=== PATIENT | male | born 1965 | race Caucasian/White ===

== ENCOUNTER → 2016-11-03 | Outpatient (CLI) | payer BC, OTHER ==
[~2016-11-03] VITALS: Ht 177.8 cm; Wt 89.8 kg
[~2016-11-03] MED LIST: BENICAR40 MG PO; CYCLOBENZAPRINE10 MG PO; CYMBALTA30 MG PO; CYMBALTA60 MG PO; ENDOCET 7.5-321 EACH PO; FLEXERIL PO; GABAPENTIN PO; GRALISE600 MG PO; LIPITOR10 MG PO; LYRICA 75 MG CA75 MG PO; MOBIC7.5 MG PO; NABUMETONE 500500 M1 PO; NEURONTIN600 MG PO; OXYCODONE-APAP1 EAC6 PO; PERCOCET 5-3251 EACH PO; PERCOCET 7.5-31 EACH PO; TRAMADOL 50 MG50 MG PO; TRAMADOL HCL E200 MG PO; ULTRAM ER200 MG PO; ULTRAM ER300 MG PO; VIAGRA50 MG PO; VOLTAREN GEL 1100 G1 TOP
--- NOTE | ~2016-11-03 | HPC ---
[facility] [address] [place] [address] PAIN MANAGEMENT CONSULTATION Name: DARIUS JAIME Damien Room #: REG [facility].#: [id number] Admission: 11/03/16 Attend Phys: Stephane Orona DO Discharge: Date of : 69 Report #: [id number] THIS REPORT FOR: //name// CC: Joe Gould MD FAM physician/PCP Stephane Orona DATE OF SERVICE: 11/03/2016 REFERRING PHYSICIAN: Joe Gould MD CHIEF COMPLAINT: Neck pain, right upper extremity pain and paresthesias. HISTORY OF PRESENT ILLNESS: As you know, the patient is a very pleasant 51-year-old male who returns today in followup visit for continuation of medication therapy. The patient indicates pain at a level of around 5/10, states his pain is aching, cramping, and stabbing in sensation, exacerbated with activities, improves with rest, relaxation and medications. He states pain begins in the neck, radiates to the right arm. He has returned today in followup visit requesting refill on medication. He denies any side effects to medication and feels they are working beneficially. ALLERGIES: No known drug allergies. CURRENT MEDICATIONS: Tramadol ER 200 mg once a day, tramadol IR 50 mg every 6 hours, Gralise 1800 mg p.o. at bedtime, Cymbalta 60 mg per day, cyclobenzaprine 10 mg 3 times a day, Viagra 50 mg p.r.n., atorvastatin 10 mg per day, and Benicar 40 mg per day. SOCIAL HISTORY: The patient continues to smoke. Denies IV or illicit drug use. Denies any chronic alcohol use. He is working, not receiving workmen's compensation, unaccompanied today. PHYSICAL EXAMINATION: VITAL SIGNS: Blood pressure 148/104, pulse is 78, respiratory rate 14 and unlabored, the patient is 98% on room air, height 5 feet 10 inches tall, weight 198 pounds, and BMI calculated 28.4. GENERAL: Well-developed, well-nourished, well-hydrated 51-year-old male, appearing stated age, placing current pain score at around 5/10. HEENT: Normocephalic, atraumatic. Pupils are equal, round, and reactive to light. EXTREMITIES: Show no clubbing, no cyanosis, and no edema. MUSCULOSKELETAL: Upper extremity strength equal and symmetrical 5/5, intact to light touch from C5-T1 dermatomes. Muscle bulk and tone equal and symmetrical. Spurlings [place] [address] PAIN MANAGEMENT CONSULTATION Name: DARIUS JAIME Damien [id number] Admission: 11/03/16 Attend Phys: Stephane Orona DO Discharge: Date of : 69 Report #: [id number] ASSESSMENT: 1. Symptomatic cervical radiculopathy. 2. Displacement of cervical intervertebral disk. 3. Cervical spondylosis with radiculopathy. 4. Chronic intractable pain. PLAN: 1. The patient returns today in followup visit for continuation of medication therapy. The patient states he is doing very well with medications and wishes to continue the medication as directed. He is noted today to have a very elevated blood pressure 148/104, apparently he has run out of his Benicar and his primary care physician is no longer working and he has yet to make an appointment with his PCP. He returns to discuss medication management and requesting a possible one-time dose of Benicar for continuing blood pressure control. 2. The patient was provided a prescription of tramadol ER 200 mg dose once a day, #30 with 2 refills. 3. The patient was provided a prescription of tramadol IR 50 mg dose 1 tab q.6 hours, #120, release dates of today, 4 weeks from today, 8 weeks from today. 4. The patient was provided a prescription of Gralise 1800 mg dose, there are three 600 mg tablets, #90, 2 refills. 5. The patient was provided a prescription of Benicar 40 mg dose 1 tab p.o. q.a.m., given #30, no refills. 6. The patient and I did discuss initiating care through a PCP. We have given the patient names of different primary care physicians in the area that we recommend. The patient will follow up making initial appointment for consultation. 7. We will see the patient back in followup visit in 3 months. At that time, we will discuss the efficacy of the medication, discuss if any changes need to be made. <ELECTRONICALLY SIGNED> By: Stephane Orona DO 11/04/16 0832 [id number] Stephane Orona DO /nt
[2016-11-03 08:07] VITALS: BP 148/104
== END | disposition home or self-care (01) ==
LOC: PAIN 07:05
DX: M50.30 Other cervical disc degeneration, unspecified cervical region (principal); M47.22 Other spondylosis with radiculopathy, cervical region; G89.29 Other chronic pain; F17.210 Nicotine dependence, cigarettes, uncomplicated

== ENCOUNTER → 2017-01-26 | Outpatient (CLI) | payer BC, OTHER ==
[~2017-01-26] VITALS: Ht 177.8 cm; Wt 87.1 kg
[~2017-01-26] MED LIST changes: +VIAGRA100 MG PO
--- NOTE | ~2017-01-26 | HPC ---
[facility] [address] [place] [address] PAIN MANAGEMENT CONSULTATION Name: ADDISONDARIUS [id number] Admission: 01/26/17 Attend Phys: Stephane Orona DO Discharge: Date of : 69 Report #: [id number] THIS REPORT FOR: //name// CC: Joe Gould MD FAM physician/PCP Stephane Orona DATE OF SERVICE: 01/26/2017 REFERRING PHYSICIAN: Joe Gould MD CHIEF COMPLAINT: Neck pain, right upper extremity pain with paresthesias. HISTORY OF PRESENT ILLNESS: As you know, the patient is a very pleasant 51-year-old male returning in followup visit for continuation of medication therapy involving his neck and upper extremity pain. The patient indicates pain level today of no greater than 8/10. He states his pain is aching, cramping and stabbing when it is present. It appears to be well alleviated with medications, reporting pain score of around 3/10 with therapy. He states his pain is exacerbated with standing, walking, and cold temperatures, improves with medications. He returns today in followup visit for medication management. ALLERGIES: No known drug allergies. CURRENT MEDICATIONS: Benicar 40 mg once a day, tramadol 50 mg p.o. q.6 hours p.r.n. mild pain, Gralise 1800 mg at night, duloxetine 60 mg once a day, Meloxicam 7.5 mg twice a day, cyclobenzaprine 10 mg 3 times a day, and atorvastatin 10 mg per day. SOCIAL HISTORY: The patient continues to smoke. Denies IV or illicit drug use. Denies any chronic alcohol use. He is working, not receiving workmen's compensation, unaccompanied today. IMAGING: No new imaging available. PHYSICAL EXAMINATION: VITAL SIGNS: Blood pressure 152/96, pulse 76, respiratory rate 16 and unlabored, the patient is 100% on room air, height 5 feet 10 inches tall, weight 192 pounds, and BMI calculated 27.6. GENERAL: Well-developed, well-nourished, well-hydrated 51-year-old male, appearing stated age, placing pain score no greater than 8/10. HEENT: Normocephalic, atraumatic. Pupils are equal, round, and reactive to light. Extraocular muscles are intact. Speech is fluent. EXTREMITIES: Show no clubbing, no cyanosis, and no edema. MUSCULOSKELETAL: Upper extremity strength remains equal and symmetrical again today 5/5. He has intact to light touch from C5 through T1 [place] [address] PAIN MANAGEMENT CONSULTATION Name: DARIUS JAIME Room #: REG [facility].#: [id number] Admission: 01/26/17 Attend Phys: Stephane Orona DO Discharge: Date of : 69 Report #: [id number] bulk and tone equal and symmetrical in the upper extremities. Spurling's test is positive right, negative left. Biceps, brachioradialis, and triceps reflexes are equal and symmetrical, 2+/4. ASSESSMENT: 1. Cervical radiculopathy. 2. Displacement of cervical intravertebral disk with radiculopathy. 3. Cervical spondylosis with radicular symptoms. 4. Chronic intractable pain. PLAN: 1. The patient returns today in followup visit for continuation of medication therapy. The patient feels medications are working beneficially. He is denying any major side effects to the medication and wishes refills on his current therapy. It is noted today the patient's blood pressure is quite elevated. We have made suggestions the patient about following up with his PCP immediately for changes in his antihypertensive medications. Following was provided in prescription forms and discussed. 2. The patient was provided a prescription of Cymbalta 60 mg dose 1 tab p.o. daily, #30, 2 refills. 3. The patient was provided a prescription of Gralise 600 mg dose 3 tabs p.o. at bedtime, total of 1800 mg that 90 tablets with 2 refills. 4. The patient was provided a prescription of tramadol 200 mg dose 1 tab p.o. q. a.m., #30, 2 refills. 5. The patient was provided a prescription of tramadol 50 mg dose 1 tab every 6 hours p.r.n. for pain, #120, 2 refills. 6. The patient was provided a refill prescription on his Benicar 40 mg dose 1 tab p.o. q.a.m., #30, no refills. I have advised the patient at this time to follow up with his primary care physician. We are not in the position to monitor the patient's blood pressure and to make adjustments in this therapy. He will need close contact with his primary care physician to adjust his antihypertensive medications we have been providing these for the last 6 months, he is yet to follow up with his PCP. He will need to do so immediately. This is a 1-month prescription with a caveat that the patient needs to follow up with primary care to establish treatment options. 7. The patient has requested and we have provided a prescription for Viagra 100 mg dose 1 tab p.o. daily p.r.n. He was given #60 which is a 3-month supply. He will need to follow up with his PCP for continuation of this therapy as well as this is not a pain management medication. 8. The patient returns to our clinic in 3 months for ongoing treatment for his cervical radicular symptoms. <ELECTRONICALLY SIGNED> By: Stephane Orona DO 02/02/17 1602 0740 [id number] Stephane Orona DO /nt
[2017-01-26 08:06] VITALS: BP 152/96
== END ==
LOC: PAIN 06:53
DX: M47.22 Other spondylosis with radiculopathy, cervical region (principal); G89.29 Other chronic pain; F17.210 Nicotine dependence, cigarettes, uncomplicated; I10 Essential (primary) hypertension; Z87.891 Personal history of nicotine dependence

== ENCOUNTER → 2017-04-14 | Outpatient (CLI) | payer BC, OTHER ==
[~2017-04-14] VITALS: Ht 177.8 cm; Wt 87.5 kg
--- NOTE | ~2017-04-14 | HPC ---
[facility] [address] [place] [address] PAIN MANAGEMENT CONSULTATION Name: DARIUS JAIME Room #: [facility] Trem[facility]neTracey#: [id number] Admission: 04/14/17 Attend Phys: Stephane Orona DO Discharge: Date of : 69 Report #: [id number] THIS REPORT FOR: //name// CC: Stephane Chandler MD DATE OF SERVICE: 04/14/2017 DATE OF SERVICE: 04/14/2017 CHIEF COMPLAINT: Neck pain, right upper extremity pain and paresthesias. HISTORY OF PRESENT ILLNESS: As you know, the patient is a very pleasant 51-year-old male, who returns today in followup visit for continuation of medication therapy. He is indicating pain medications are working beneficially for pain control, placing current pain score 3/10. States his pain is cramping, pins and needles, stabbing in sensation, exacerbated with standing, walking, cold temperatures, improves with medications, rest and relaxation. He returns today in followup visit requesting refill on medications, as these are working beneficially for pain control. He does provide information today about trip that is upcoming to which he will be traveling to [place], and then on to [place] to spend some time in [place], apparently a 3-week trip. He may need an early release of his medications to make this trip. He returns today to discuss continuation of medications and to have an early release of medications for this pending vacation. The patient also relays information of bilateral upper extremity and lower extremity cramping. Workup is continuing but there has been no foundation of changes in his electrolytes which could correlate to this issue. He wishes to discuss this as well. ALLERGIES: No known drug allergies. CURRENT MEDICATIONS: Viagra, olmesartan, tramadol, gabapentin, duloxetine, meloxicam, cyclobenzaprine and atorvastatin. SOCIAL HISTORY: The patient continues to smoke. Denies IV or illicit drug use. Denies any chronic alcohol use. He is working, not receiving workmen's compensation, unaccompanied today. IMAGING: No new imaging available. PHYSICAL EXAMINATION: VITAL SIGNS: Blood pressure 123/84, pulse 80, respiratory rate 14, unlabored. The patient is 100% on room air, height 5 feet 10 inches tall, weight 193 pounds, BMI calculated 27.7. GENERAL: Well developed, well nourished, well hydrated, 51-year-old male. He [address] [address] PAIN MANAGEMENT CONSULTATION Name: DARIUS JAIME Damien Room #: REG [facility]#: [id number] Admission: 04/14/17 Attend Phys: Stephane Orona DO Discharge: Date of : 69 Report #: [id number] appears stated age. He is placing current pain score 3/10. HEENT: Normocephalic, atraumatic. Pupils equal, round, reactive to light. Extraocular muscles are intact. Speech is fluent. EXTREMITIES: Show no clubbing, no cyanosis, no edema. MUSCULOSKELETAL: Upper extremity strength remains equal and symmetrical 5/5. He is intact to light touch from C5 through T1 dermatomes. Spurling's test is positive right, negative left. Muscle bulk and tone is symmetrical. I am unable to elicit any spasming in the lower extremities or upper extremities with manipulation of the cervical region. Testing of the muscles in lower extremity appear normal. ASSESSMENT: 1. Cervical radiculopathy. 2. Displacement of cervical intervertebral disk with radiculopathy. 3. Cervical spondylosis with radiculopathy. 4. Chronic intractable pain. PLAN: 1. The patient returns today in followup visit for medication management. He is requesting a possible early release of medication, as he has a planned trip to [place] for which he will be gone for nearly a month. He is planning to leave in the next couple of weeks. He may need an early refill. I have advised the patient at this time, there will be no problem. We would be more than willing to provide this for him. He has requested no early refills in the past and this is to address his impending vacation time. We would have no problem contacting the pharmacy if necessary to allow for early refills. 2. The patient has requested refill of his tramadol ER 200 mg dose 1 tab per day, I have given #30 tablets, 2 refills. 3. The patient was provided a prescription of tramadol 50 mg IR one tab every 6 hours p.r.n. for pain., #120, two refills. 4. The patient was provided a prescription of Gralise 600 mg dose 3 tabs p.o. at bedtime, #90 with 2 refills. 5. The patient was provided refill prescription on Cymbalta 60 mg dose 1 tab per day, #30 with 2 refills. 6. The patient had a discussion today about his cramping sensation. It appears to be suffering from upper extremity and lower extremity cramping. This could be due to cervical pathology and bilateral radiculopathies due to signaling issues due to compression in the cervical region. We would recommend the patient trial a 3 night dosing change in his Cymbalta changing from 60 mg once a day to 60 mg twice a day. I wish to determine whether or not his symptoms are related to aberrant signalling from the cervical region, which would correlate with his bilateral nature of cramping. Certainly workup continues for other etiologies for his cramping, but we would like to trial this at least for a 3-day period. We will increase his dose from 60 mg to 120 mg over a 3-day period. He will contact us in regards to efficacy on Wednesday next week. He is planning to initiate this therapy, Wednesday, Wednesday and Wednesday. This will give [facility] [address] [place] [address] PAIN MANAGEMENT CONSULTATION Name: DARIUS JAIME Room #: REG [facility]#: [id number] Admission: 04/14/17 Attend Phys: Stephane Orona DO Discharge: Date of : 69 Report #: [id number] us a chance to evaluate in his normal day-to-day activities. If this is effective at alleviating his cramping which patient indicates is daily, we would be more than willing to provide an increase in his Cymbalta. 7. We will see the patient back in followup visit in 3 months. He will contact our clinic about this trial of increasing Cymbalta to determine if his cramping sensation will improve. If it does, he will then receive a refill of this medication at his local pharmacy; would not need to make an appointment to return to have this increase. By: [id number] Stephane Orona DO /nt
[2017-04-14 08:09] VITALS: BP 123/84
== END | disposition home or self-care (01) ==
LOC: PAIN 06:47
DX: M50.220 Other cervical disc displacement, mid-cervical region, unspecified level (principal); M47.22 Other spondylosis with radiculopathy, cervical region; G89.29 Other chronic pain; F17.210 Nicotine dependence, cigarettes, uncomplicated

== ENCOUNTER → 2017-06-22 | Outpatient (CLI) | payer BC, OTHER ==
[~2017-06-22] VITALS: Ht 177.8 cm; Wt 87.8 kg
--- NOTE | ~2017-06-22 | HPC ---
[facility] [address] [place] [address] PAIN MANAGEMENT CONSULTATION Name: DARIUS JAIME Room #: REG [facility] Suleiman#: [id number] Admission: 06/22/17 Attend Phys: Stephane Orona DO Discharge: Date of : 69 Report #: [id number] THIS REPORT FOR: //name// CC: Stephane Chandler DO DATE OF SERVICE: 06/22/2017 CHIEF COMPLAINT: Neck pain, right upper extremity pain and paresthesias. HISTORY OF PRESENT ILLNESS: As you know, the patient is a very pleasant 51-year-old male who returns today in followup visit reporting pain score 3/10. The patient has recently returned from a trip to [place] where he spent nearly a month traveling with his . He indicates during that time he was taking his medications appropriately. He states that his pain was intensified with certain activities, but was well tolerated with the therapy provided through our services. He returns today in followup visit requesting his typical refills of his medications. He is denying any side effects of the medication and does feel it is quite beneficial. He indicates no side effects to his medications today. ALLERGIES: No known drug allergies. CURRENT MEDICATIONS: Tramadol ER 200 mg once a day, tramadol IR 50 mg q.6 hours p.r.n. for pain, Gralise 1800 mg p.o. at bedtime, duloxetine 60 mg once a day, Viagra 100 mg p.r.n., olmesartan 40 mg per day, meloxicam 7.5 mg twice a day, cyclobenzaprine 10 mg p.r.n. SOCIAL HISTORY: The patient continues to smoke, but denies IV or illicit drug use. Denies any chronic alcohol use. He is working, not receiving workmen's compensation. He is unaccompanied today. IMAGING: No new imaging available. PHYSICAL EXAMINATION: VITAL SIGNS: Blood pressure 140/94, pulse 72, respiratory rate 14, unlabored. The patient is 100% on room air, height 5 feet 10 inches tall, weight 193.6 pounds, BMI calculated 27.8. GENERAL: Well developed, well nourished, well hydrated 51-year-old male appearing his stated age. He is placing pain score today 3/10. HEENT: Normocephalic, atraumatic. Pupils equal, round, reactive to light. Extraocular muscles are intact. EXTREMITIES: Show no clubbing, no cyanosis, no edema. MUSCULOSKELETAL: Upper extremity strength symmetrical 5/5, muscle bulk and tone equal and symmetrical. Spurlings test positive right, negative left. Biceps brachialis, triceps, deep tendon reflexes equal and symmetrical. [address] [address] PAIN MANAGEMENT CONSULTATION Name: ADDISONDARIUS Room #: REG [facility] Suleiman#: [id number] Admission: 06/22/17 Attend Phys: Stephane Orona DO Discharge: Date of : 69 Report #: [id number] ASSESSMENT: 1. Cervical radiculopathy. 2. Displacement of a cervical intervertebral disk with radiculopathy. 3. Cervical spondylosis with radiculopathy. 4. Chronic intractable pain. PLAN: 1. The patient returns today in followup visit for medication management. He returns today reporting pain score of around 3/10. The patient states that the medications provided are giving good analgesic benefit without side effects. He has recently returned from a trip to [place] where he traveled through [place], [place] and other countries. He indicates during that time he was utilizing his medication appropriately. The medications did provide him benefit during the trip and does continue to provide benefit while on his daily work activities. He returns requesting refills of each of the medication. 2. The patient was provided a prescription of Cymbalta 60 mg dose 1 tab p.o. q.a.m., #32 refills. 3. The patient was provided a prescription of Gralise 600 mg dose 3 tabs p.o. at bedtime, #92 refills. 4. The patient was provided a prescription of tramadol ER 200 mg dose 1 tab p.o. q.a.m., #30 with 2 refills. 5. The patient was provided a prescription of tramadol IR 50 mg dose 4 times a day as needed, #120 with 2 refills. 6. The patient was provided refill prescription on his Viagra 100 mg dose 1 tab q.a.m., #60 which is a 3-month prescription. The patient was advised to take this medication only as necessary. 7. We will see the patient back in followup visit in 3 months for ongoing medical therapy earlier if he wishes to undergo interventional treatment such as cervical epidural injection. <ELECTRONICALLY SIGNED> By: Stephane Orona DO 06/29/17 0714 [id number] Stephane Orona DO /nt
[2017-06-22 08:15] VITALS: BP 140/94
== END ==
LOC: PAIN 07:03
DX: M47.22 Other spondylosis with radiculopathy, cervical region (principal); M50.10 Cervical disc disorder with radiculopathy, unspecified cervical region; F17.210 Nicotine dependence, cigarettes, uncomplicated; G89.29 Other chronic pain; Z87.891 Personal history of nicotine dependence; Z79.899 Other long term (current) drug therapy

== ENCOUNTER → 2017-12-07 | Outpatient (CLI) | payer BC, OTHER ==
[~2017-12-07] VITALS: Ht 177.8 cm; Wt 89.6 kg
[~2017-12-07] MED LIST changes: +ZETIA10 MG PO
--- NOTE | ~2017-12-07 | HPC ---
[facility] [address] [place] [address] PAIN MANAGEMENT CONSULTATION Name: DARIUS JAIME Room #: REG DINORAH Suleiman#: [id number] Admission: 12/07/17 Attend Phys: Stephane Orona DO Discharge: Date of : 69 Report #: [id number] THIS REPORT FOR: //name// CC: Stephane Chandler DATE OF SERVICE: 12/07/2017 REFERRING PHYSICIAN: Dr. Uday Dennis. CHIEF COMPLAINT: Neck pain, right upper extremity pain with paresthesias. HISTORY OF PRESENT ILLNESS: As you know, the patient is a very pleasant 52-year-old male who returns today in followup visit with continued neck pain, right upper extremity pain with paresthesias. The patient and I have discussed various treatment options for cervical radicular symptoms. He has tried to remain as conservative as possible with his treatment options. Surgical options do exist, but he does not wish to move forward with surgery unless he absolutely needs to. He states his pain medications are working very well for pain control. He rates his pain no greater than 4/10, states pain is cramping, tingling and stabbing in sensation, exacerbated with standing, walking, cold temperatures, improves with medications. The pain he experiences begins in his neck, radiates down his right arm through his shoulder and towards his hand. He returns today in followup visit for medication management. He is denying any side effects to the therapy including somnolence, decrease in mental acuity, disorientation, confusion and mental slowing. ALLERGIES: No known drug allergies. CURRENT MEDICATIONS: Tramadol ER 200 mg once a day. Tramadol IR 50 mg q.6 hours p.r.n. pain. Gralise 1800 mg p.o. at bedtime. Duloxetine 60 mg once a day. Olmesartan 40 mg per day. Meloxicam 7.5 mg twice a day. Cyclobenzaprine 10 mg once a day. SOCIAL HISTORY: The patient does continue to smoke, denies IV or illicit drug use. Denies any chronic alcohol use. He is working, not receiving workman's compensation. He is unaccompanied today. IMAGING: No new imaging available. PQRS: The patient does not have known osteoarthritis or rheumatoid arthritis. He is not a fall risk, has not had a fall in the last 3 months. He does carry the diagnosis of hypertension, for which he is receiving medication management. He has a low risk for opioid addiction potentials. His pain impact score is 32/70. [address] [address] PAIN MANAGEMENT CONSULTATION Name: DARIUS JAIME Room #: REG [facility]#: [id number] Admission: 12/07/17 Attend Phys: Stephane Orona DO Discharge: Date of : 69 Report #: [id number] PHYSICAL EXAMINATION: VITAL SIGNS: Blood pressure 126/85, pulse is 82, respiratory rate 16 and unlabored. The patient is 100% on room air. Height 5 feet 10 inch tall, weight 197.6 pounds. BMI calculated 28.4. GENERAL: Well-developed, well-nourished, well-hydrated 52-year-old male, appearing his stated age, placing current pain score 4/10. HEENT: Normocephalic, atraumatic. Pupils equal, round and reactive to light. EXTREMITIES: Show no clubbing, no cyanosis. No edema. MUSCULOSKELETAL: Upper extremity strength equal and symmetrical, 5/5. Muscle, bulk and tone equal and symmetrical. Spurling test positive for right, negative left. Deep tendon reflexes and biceps brachioradialis and triceps equal and symmetrical. Cervical provocation testing does meet with mild restriction in motion to the right with pain generation. Lateral flexion causes intensification of pain to the right. ASSESSMENT: 1. Cervical radiculopathy. 2. Displacement of cervical intervertebral disk with radiculopathy. 3. Cervical spondylosis with radiculopathy. 4. Myofascial pain. 5. Chronic intractable pain. PLAN: 1. The patient has returned today in followup visit for medication management. The patient feels medications are working beneficially for pain control. The patient indicates pain level of no greater than 4/10. He feels medication provide upwards of 80% improvement in overall pain. He returns today in followup visit requesting refill on therapy at this time. 2. The patient was provided a prescription of Cymbalta 60 mg dose 1 tab p.o. q. day #30, with 2 refills. 3. The patient will be provided with prescription of Gralise 600 mg tablets 3 tablets p.o. at bedtime #90, 2 refills. 4. The patient was provided prescription of tramadol ER 200 mg dose, 1 tab p.o. q.a.m. #30, 2 refills. 5. The patient is provided prescription of tramadol 50 mg dose 1 tab p.o. q.6 hours p.r.n. pain #120, releases of today, 4 weeks from today, 8 weeks from today. 6. The patient was provided prescription of Viagra 100 mg dose 1 tab p.o. q. day #60, a 3-month prescription. The patient will need to receive this medication through his PCP from this point forward as this is not part of a pain management medication protocol. 7. The patient and I discussed opioid contract and informed consent for opioid treatment today. We have re-signed our contract today. The patient was given the information prior to our visit so that he could review this in his own time. He has signed the contract, it has been countersigned by myself and witnessing [facility] [address] [place] [address] PAIN MANAGEMENT CONSULTATION Name: DARIUS JAIME Room #: REG CULLEN Bearden#: [id number] Admission: 12/07/17 Attend Phys: Stephane Orona DO Discharge: Date of : 69 Report #: [id number] nurse. 8. I will see the patient back in followup visit in 3 months. <ELECTRONICALLY SIGNED> By: Stephane Orona DO 12/15/17 0715 [id number] [id number] Stephane Orona DO /nt
[2017-12-07 08:55] VITALS: BP 126/85
== END ==
LOC: PAIN 06:55
DX: M54.12 Radiculopathy, cervical region (principal); M47.892 Other spondylosis, cervical region; M79.1 Myalgia

== ENCOUNTER → 2018-08-10 | Outpatient (CLI) | payer BC, OTHER ==
[~2018-08-10] VITALS: Ht 177.8 cm; Wt 87.5 kg
--- NOTE | ~2018-08-10 | HPC ---
[facility] [address] [place] [address] PAIN MANAGEMENT CONSULTATION Name: DARIUS JAIME Room #: REG [facility].#: [id number] Admission: 08/10/18 Attend Phys: Stephane Orona DO Discharge: Date of : 69 Report #: [id number] THIS REPORT FOR: //name// CC: Stephane Adamson DATE OF SERVICE: 08/10/2018 REFERRING PHYSICIAN: Uday Chandler DO CHIEF COMPLAINT: Neck pain, right upper extremity pain and paresthesias. HISTORY OF PRESENT ILLNESS: As you know, the patient is a very pleasant 52-year-old male who returns today in followup visit for medication management. We are treating his cervical radicular symptoms that presented as neck pain, right upper extremity pain up to levels of 5/10 with medications. He states his pain when present is cramping, tingling and stabbing in sensation, exacerbated with standing, walking and cold temperatures, improves with medication management. He is placing pain score today at 5/10, which is typical for him. He denies any side effects to medication therapy. He does wish to continue the medication management as currently prescribed. He states he has been busy of late and this may be part of the reason why his pain level is slightly higher today. He denies new injury or trauma. ALLERGIES: No known drug allergies. CURRENT MEDICATIONS: Tramadol ER 200 mg once a day, tramadol IR 50 mg every 8 hours p.r.n. for pain, Gralise 1800 mg p.o. at bedtime, duloxetine 60 mg once a day, olmesartan 40 mg per day, Zetia 10 mg per day, meloxicam 7.5 mg once a day, cyclobenzaprine 10 mg every 8 hours p.r.n. pain. SOCIAL HISTORY: The patient continues to smoke. He denies IV or illicit drug use. Denies any chronic alcohol use. He is working, not receiving workmen's compensation, unaccompanied today. IMAGING: No new imaging available. PHYSICAL EXAMINATION: VITAL SIGNS: Blood pressure 107/76, pulse 94, respiratory rate 14 and unlabored. The patient is saturating 99% on room air. Height 5 feet 10 inches tall, weight 193 pounds, BMI calculated at 27.7. GENERAL: Well-developed, well-nourished, well-hydrated 52-year-old male, appearing stated age, placing current pain score around 5/10. HEENT: Head is normocephalic, atraumatic. Pupils equal, round, reactive to light. [address] [place] [address] [address] PAIN MANAGEMENT CONSULTATION Name: ADDISONDARIUS Room #: REG [facility].#: [id number] Admission: 08/10/18 Attend Phys: Stephane Orona DO Discharge: Date of : 69 Report #: [id number] EXTREMITIES: Show no clubbing, no cyanosis, no edema. MUSCULOSKELETAL: Upper extremity strength is symmetrical again today 5/5. Muscle bulk and tone is equal and symmetrical in comparing left upper extremity to right upper extremity. Spurling's test remains positive right, negative left. Cervical provocation testing is met with mild restriction of motion to the right with increasing pain, no radiation of symptoms in typical radicular fashion. This is noted mainly with rotation and lateral flexion. ASSESSMENT: 1. Cervical radiculopathy. 2. Displacement of a cervical intervertebral disk with radiculopathy. 3. Cervical spondylosis with radiculopathy. 4. Chronic intractable pain. PLAN: 1. The patient returns today in followup visit for continuation of medication therapy. The patient feels medications are working beneficially for pain control. He is denying any side effects to the medication at this time. He indicates good efficacy with the medication despite the 5/10 pain reported today. He requests refills of the gabapentin, Cymbalta, Gralise, tramadol and tramadol ER. 2. The patient was provided prescription of tramadol ER 200 mg dose 1 tab p.o. q.a.m., #30, 2 refills, 3 months' worth of medication. 3. The patient was provided prescription of tramadol 50 mg dose 1 tab every 6 hours p.r.n. for pain, #120 with 2 refills, 3 months' worth of medication. 4. The patient was provided a prescription of Gralise 600 mg dose 3 tabs p.o. at bedtime, #90, 2 refills. 5. The patient was provided prescription of Cymbalta 60 mg dose 1 tab p.o. every day, #30, 2 refills. 6. We reviewed the fact that opiate medications are being used to provide analgesia adequate to support activities of daily living, not attempting to achieve a specific pain score on the 0-10 Visual Analog Scale. The current opiate medications are providing sufficient analgesia to allow the patient to participate in activities of daily living. The patient is not exhibiting any aberrant behavior suggestive of drug diversion. The patient is not having any adverse reactions to medications. The patient is not suffering from daytime somnolence or mental acuity changes. The patient is managing opiate-induced constipation with appropriate siva-tmx-wteyvat agents and dietary considerations. The patient was counseled on concern for caution with operating a motor vehicle while using opiate medications. A physical exam was performed and the patient's functional status was evaluated. All patients with back pain were advised against the bed rest greater than 4 days and were advised to return to normal activities. Pain score assessment was noted and the treatment plan was reviewed with the patient. All current medications, both prescribed and OTC were reviewed and reconciled on the electronic medical record. Tobacco screening was accomplished and smoking [facility] [address] [place] [address] PAIN MANAGEMENT CONSULTATION Name: ADDISONDARIUS Room #: REG [facility] Suleiman#: [id number] Admission: 08/10/18 Attend Phys: Stephane Orona DO Discharge: Date of : 69 Report #: [id number] cessation was advised when indicated. BMI was noted and diet/exercise modification was recommended for all patients following outside normal parameters. I reviewed with the patient today their responsibilities to safeguard prescription medications, reviewed their responsibility to utilize medications only as prescribed by the physician. They are to seek and receive pain medications only from 1 physician group ( [facility]). They are to use 1 pharmacy and keep the clinic informed if they change pharmacies. Their responsibilities include making followup visits in a timely fashion and to avoid abrupt discontinuation of medication usage. Their responsibilities further include bringing their medications (bottles from the pharmacy with residual pills) to the visit for possible confirmation of pill counts and the patient understands it is their responsibility to submit to random drug screens to ensure both that the medications prescribed are present, and that no other controlled substances are present. All prescriptions provided today were generated electronically. 7. We will see the patient back in followup visit in 3 months or earlier if he wishes to discuss possible cervical epidural injections. <ELECTRONICALLY SIGNED> By: Stephane Orona DO 08/12/18 0734 1152 [id number] Stephane Orona DO /nt
[2018-08-10 08:25] VITALS: BP 107/76
== END ==
LOC: PAIN 06:56
DX: M47.22 Other spondylosis with radiculopathy, cervical region (principal); M50.10 Cervical disc disorder with radiculopathy, unspecified cervical region; G89.4 Chronic pain syndrome; Z79.899 Other long term (current) drug therapy

== ENCOUNTER → 2018-10-26 | Outpatient (CLI) | payer BC, OTHER ==
[~2018-10-26] VITALS: Ht 177.8 cm; Wt 90.7 kg
--- NOTE | ~2018-10-26 | HPC ---
[facility] [address] [place] [address] PAIN MANAGEMENT CONSULTATION Name: DARIUS JAIME Room #: REG CULLEN Dangelo.#: [id number] Admission: 10/26/18 Attend Phys: Stephane Orona DO Discharge: Date of : 69 Report #: [id number] THIS REPORT FOR: //name// CC: Stephane Chandler DATE OF SERVICE: 10/26/2018 CHIEF COMPLAINT: Neck pain and right upper extremity pain with paresthesias. HISTORY OF PRESENT ILLNESS: As you know, the patient is a very pleasant 53-year-old male returning in followup visit reporting pain score 5/10. He states the pain is cramping, tingling, stabbing, numbness when describing symptoms and it is chronic in nature. Exacerbated with standing, walking, cold temperatures and use of his right upper extremity. He returns today in followup visit, denying any changes in medical history. No recent injuries. No recent traumas. He returns requesting refill of medications. He feels medications provide upwards of 80% improvement in overall pain reducing his dysfunction significantly. He returns requesting refill of the medications at this time. ALLERGIES: No known drug allergies. CURRENT MEDICATIONS: Flexeril 10 mg p.o. at bedtime p.r.n. muscle spasms, meloxicam 7.5 mg once a day, Zetia 10 mg per day, olmesartan 40 mg per day, duloxetine 60 mg once a day, Gralise 1800 mg p.o. at bedtime, tramadol ER 200 mg once a day and tramadol IR 50 mg 1 tab every 6 hours p.r.n. for pain. SOCIAL HISTORY: The patient reports he is continued smoker. Denies IV or illicit drug use. Denies any chronic alcohol use. He is working, not receiving workmen's compensation, unaccompanied today. IMAGING DATA: No new imaging available. PHYSICAL EXAMINATION: VITAL SIGNS: Blood pressure 128/75, pulse 75 and respiratory rate 18 and unlabored. The patient is 98% on room air. Height 5 feet 10 inches tall, weight 200 pounds and BMI calculated 29.5. GENERAL: Well-developed, well-nourished, well-hydrated 53-year-old male appearing stated age, placing current pain score around 5/10. HEENT: Normocephalic and atraumatic. Pupils equal, round and reactive to light. Extraocular muscles are intact. EXTREMITIES: Show no clubbing, no cyanosis and no edema. MUSCULOSKELETAL: Upper extremity strength is symmetrical 5/5, muscle bulk and tone remains symmetrical in comparing left upper extremity to right. Spurling's test positive right, negative left. Cervical provocation testing including extension, rotation, lateral flexion are normal in their range of motion but it [facility] [address] [place] [address] PAIN MANAGEMENT CONSULTATION Name: DARIUS JAIME Damien Room #: REG [facility].#: [id number] Admission: 10/26/18 Attend Phys: Stephane Orona DO Discharge: Date of : 69 Report #: [id number] is noted to have slight increase in pain on the right when compared to left. ASSESSMENT: 1. Cervical radiculopathy. 2. Displacement of cervical intervertebral disk with radiculopathy. 3. Cervical spondylosis with radiculopathy. 4. Chronic intractable pain. PLAN: 1. The patient returns today in followup visit requesting refill of medication. He feels medications are working beneficially for pain control. The patient reports up to 70%-80% improvement in overall pain with medications provided. He is denying any side effects of somnolence, decreased mental acuity, disorientation, confusion, mental slowing or constipation. He requests refill of medications at current dosing. 2. The patient was provided a refill prescription of his Cymbalta 60 mg dose 1 tab p.o. q.a.m., #30, two refills, 3 months' worth of medication. 3. The patient was provided refill prescription of Gralise 600 mg dose 3 tabs p.o. at bedtime, #90, two refills. 4. The patient was provided a refill prescription of tramadol 50 mg dose 1 tab p.o. q. 6 hours p.r.n. for pain, #120, two refills, 3 months' worth of medication. 5. The patient was provided refill prescription of tramadol ER 200 mg dose 1 tab p.o. q.a.m., #30 two refills. 6. We reviewed the fact that opiate medications are being used to provide analgesia adequate to support activities of daily living, not attempting to achieve a specific pain score on the 0-10 Visual Analog Scale. The current opiate medications are providing sufficient analgesia to allow the patient to participate in activities of daily living. The patient is not exhibiting any aberrant behavior suggestive of drug diversion. The patient is not having any adverse reactions to medications. The patient is not suffering from daytime somnolence or mental acuity changes. The patient is managing opiate-induced constipation with appropriate lxor-uid-fbdpebh agents and dietary considerations. The patient was counseled on concern for caution with operating a motor vehicle while using opiate medications. A physical exam was performed and the patient's functional status was evaluated. All patients with back pain were advised against the bed rest greater than 4 days and were advised to return to normal activities. Pain score assessment was noted and the treatment plan was reviewed with the patient. All current medications, both prescribed and OTC were reviewed and reconciled on the electronic medical record. Tobacco screening was accomplished and smoking cessation was advised when indicated. BMI was noted and diet/exercise modification was recommended for all patients following outside normal parameters. [address] [address] PAIN MANAGEMENT CONSULTATION Name: DARIUS JAIME [id number] Admission: 10/26/18 Attend Phys: Stephane Orona DO Discharge: Date of : 69 Report #: [id number] I reviewed with the patient today their responsibilities to safeguard prescription medications, reviewed their responsibility to utilize medications only as prescribed by the physician. They are to seek and receive pain medications only from 1 physician group ( [facility]). They are to use 1 pharmacy and keep the clinic informed if they change pharmacies. Their responsibilities include making followup visits in a timely fashion and to avoid abrupt discontinuation of medication usage. Their responsibilities further include bringing their medications (bottles from the pharmacy with residual pills) to the visit for possible confirmation of pill counts and the patient understands it is their responsibility to submit to random drug screens to ensure both that the medications prescribed are present, and that no other controlled substances are present. All prescriptions provided today were generated electronically. 7. The patient will return to our clinic in 3 months for medication management or earlier for interventional treatments. By: [id number] Stephane Orona DO /dennys
[2018-10-26 08:12] VITALS: BP 128/75
--- NOTE | 2018-10-26 08:14 | NUR ---
Pain Clinic Assessment: 1. History of Osteoarthritis: Not Applicable History of Rheumatoid Arthritis: Not Applicable 2. Height: 5 ft. 10 in. 177.8 cm. Weight: 200.0 lb. oz. 90.720 kg. Patient's BMI: 29.5 3. Vital Signs: BP: 128/75 Pulse: 75 Resp: 18 Temp: 02 Sat: 98 ECG Mon: 4. Pain Intensity: 5 5. Fall Risk: Dizziness: N Needs help standing or walking: N Fallen in the last 3 months: N Fall risk comments: 6. Patient on Blood Thinner: None 7. History of Hypertension: Y 8. Opioid Therapy greater than 6 weeks: Y Opiate Contract Signed: 05/20/16 9. Risk Assessment Tool Provided: O LOW RISK 10. Functional Assessment Tool: 11. Recreational Drug Use: Never Drug Type: Tobacco Use: Former Smoker Tobacco Type: Amount or Packs/day: How Many Years: Alcohol Use: Yes Frequency: Quant:
== END ==
LOC: PAIN 08:00
DX: M47.22 Other spondylosis with radiculopathy, cervical region (principal); M50.20 Other cervical disc displacement, unspecified cervical region; G89.4 Chronic pain syndrome; Z79.899 Other long term (current) drug therapy

== ENCOUNTER → 2019-01-25 | Outpatient (CLI) | payer BC, OTHER ==
[~2019-01-25] VITALS: Ht 177.8 cm; Wt 90.7 kg
[2019-01-25 08:16] VITALS: BP 124/79
--- NOTE | 2019-01-25 08:42 | NUR ---
Pain Clinic Assessment: 1. History of Osteoarthritis: Not Applicable History of Rheumatoid Arthritis: Not Applicable 2. Height: 5 ft. 10 in. 177.8 cm. Weight: 200.0 lb. oz. 90.720 kg. Patient's BMI: 28.7 3. Vital Signs: BP: 124/79 Pulse: 86 Resp: 16 Temp: 02 Sat: 124 ECG Mon: 4. Pain Intensity: 8 5. Fall Risk: Dizziness: N Needs help standing or walking: N Fallen in the last 3 months: N Fall risk comments: 6. Patient on Blood Thinner: None 7. History of Hypertension: Y 8. Opioid Therapy greater than 6 weeks: Y Opiate Contract Signed: 05/20/16 9. Risk Assessment Tool Provided: O LOW RISK 10. Functional Assessment Tool: 11. Recreational Drug Use: Never Drug Type: Tobacco Use: Former Smoker Tobacco Type: Amount or Packs/day: How Many Years: Alcohol Use: Yes Frequency: Quant:
--- NOTE | 2019-01-26 09:11 | HPC ---
[facility] [address] [place] [address] PAIN MANAGEMENT CONSULTATION Name: DARIUS JAIME Room #: REG CLULEN Bearden#: [id number] Admission: 01/25/19 ������������������ Attend Phys: Mary De La Garza Discharge: ������������������ Date of : 69 Report #: [id number] THIS REPORT FOR: //name// CC: Mary De La Garza Uday Chandler DATE OF SERVICE: 01/25/2019 HISTORY OF PRESENT ILLNESS: This is a very pleasant 53-year-old gentleman who returns to the pain clinic today for a refill of his medication management. He tells me that his pain score is 2/10. His pain is mostly in his neck and right upper arm and shoulder. He occasionally has some lower back pain. He tells me that he typically takes his medicine long-acting tramadol at bedtime and then he takes a 50 mg tramadol in the morning upon arising and then he will take 2-3 additional tramadol depending on the day as needed throughout the day. He said if he is going to be very active, he definitely will have his 4 tramadol that he is allotted per day. His Gralise and Cymbalta are also very helpful in making him function in his daily activities. He denies any constipation problems. He tells me that he will be going on vacation sometime in the next refill period here and may need a vacation though and he would like medication refills today. ALLERGIES: No known allergies. CURRENT MEDICATION LIST: Cymbalta 60 mg daily, Gralise 600 mg tablets three at dinner, tramadol 200 mg at bedtime, tramadol 50 mg up to 4 times a day, Benicar 40 mg daily, Zetia 10 mg daily, Flexeril 10 mg as needed. PQRS: 1. He denies any osteoarthritis and rheumatoid arthritis. 2. Height is 5 feet 10 inches, weight is 200, BMI is 28.7. 3. Vital signs 124/79, pulse is 86, respirations 16, oxygen sat is 98. 4. Pain score is 2/10. 5. Fall risk. Denies dizziness. Does not need help walking or standing. Has not fallen in the last 3 months. 6. The patient is not on any blood thinners. He does take medicine for hypertension. 7. Opioid therapy is greater than 6 weeks; therefore, an opioid signed contract is on the chart. His risk assessment tool is low. His functional assessment is 18/70. 8. Recreational drug use. He denies. He is a former smoker and occasionally drinks alcohol. We did check the prescription monitoring system. The patient is filling appropriately from Dr. Stephane Orona. We will check a buccal drug screen on this patient today as a random screen. He has not had one in the past year. PHYSICAL EXAMINATION: [facility] [address] [place] [address] PAIN MANAGEMENT CONSULTATION Name: DARIUS JAIME Damien Room #: REG CULLEN Bearden#: [id number] Admission: 01/25/19 ������������������ Attend Phys: Mary De La Garza Discharge: ������������������ Date of : 69 Report #: [id number] GENERAL: This is a well-developed, well-nourished, well-hydrated 53-year-old gentleman who appears his stated age. Placing his pain score today at 2/10. HEENT: Normocephalic, atraumatic. Extraocular eye muscles are intact. Mucous membranes are moist. EXTREMITIES: No clubbing, no cyanosis, no edema. MUSCULOSKELETAL: Upper extremity strength is symmetrical 5/5, muscle bulk and tone remain symmetrical. Does complain of some tenderness in his right shoulder today, but does have range of motion in his cervical spine that does cause some pain in his rotation and lateral flexion range of motion. ASSESSMENT: 1. Cervical radiculopathy. 2. Displacement of cervical intervertebral disk with radiculopathy. 3. Cervical spondylosis with radiculopathy. 4. Chronic intractable pain. 5. Low back pain. We reviewed the fact that opiate medications are being used to provide analgesia adequate to support activities of daily living, not attempting to achieve a specific pain score on the 0-10 Visual Analog Scale. The current opiate medications are providing sufficient analgesia to allow the patient to participate in activities of daily living. The patient is not exhibiting any aberrant behavior suggestive of drug diversion. The patient is not having any adverse reactions to medications. The patient is not suffering from daytime somnolence or mental acuity changes. The patient is managing opiate-induced constipation with appropriate igms-rij-lcecwkm agents and dietary considerations. The patient was counseled on concern for caution with operating a motor vehicle while using opiate medications. A physical exam was performed and the patient's functional status was evaluated. All patients with back pain were advised against the bed rest greater than 4 days and were advised to return to normal activities. Pain score assessment was noted and the treatment plan was reviewed with the patient. All current medications, both prescribed and OTC were reviewed and reconciled on the electronic medical record. Tobacco screening was accomplished and smoking cessation was advised when indicated. BMI was noted and diet/exercise modification was recommended for all patients following outside normal parameters. I reviewed with the patient today their responsibilities to safeguard prescription medications, reviewed their responsibility to utilize medications only as prescribed by the physician. They are to seek and receive pain medications only from 1 physician group ( [facility] They are to use 1 pharmacy and keep the clinic informed if they change pharmacies. Their responsibilities include making followup visits in a timely fashion and to avoid abrupt discontinuation of medication usage. Their responsibilities further [facility] [address] [place] [address] PAIN MANAGEMENT CONSULTATION Name: ADDISONDARIUS Damien Room #: REG [facility].#: [id number] Admission: 01/25/19 ������������������ Attend Phys: Mary De La Garza Discharge: ������������������ Date of : 69 Report #: [id number] include bringing their medications (bottles from the pharmacy with residual pills) to the visit for possible confirmation of pill counts and the patient understands it is their responsibility to submit to random drug screens to ensure both that the medications prescribed are present, and that no other controlled substances are present. All prescriptions provided today were generated electronically. PLAN: 1. We discussed treatment options with the patient today. The patient tells me he is doing very well with his current medication regimen and would like to continue this. He does tell me that he will be going out of town and may need a vacation fill. He was instructed by Dr. Stephane Orona when he did see the patient to call the office and we will arrange to have a vacation fill if needed when that time arises. 2. Scripts given today for Cymbalta 60 mg 1 every day, #30 with 2 additional refills; Gralise 600 mg tablets, #90, three tablets at bedtime with 2 additional refills; tramadol 50 mg every 6 hours, #120 with 2 additional refills; and tramadol ER 200 mg tablets daily, #30 with 2 additional refills. 3. The patient seen with Dr. Stephane Orona who also collaborated care. ��������������������������������������������� <ELECTRONICALLY SIGNED> ���������������������������������������� By: Mary De La Garza ��������������������������������������������� 01/26/19 0911 [id number] Mary De La Garza /nt
== END ==
LOC: PAIN 06:41
DX: M47.22 Other spondylosis with radiculopathy, cervical region (principal); G89.4 Chronic pain syndrome; Z79.899 Other long term (current) drug therapy

== ENCOUNTER → 2019-05-03 | Outpatient (CLI) | payer BC, OTHER ==
[~2019-05-03] VITALS: Ht 177.8 cm; Wt 84.1 kg
[2019-05-03 08:30] VITALS: BP 129/91
--- NOTE | 2019-05-03 08:41 | NUR ---
Pain Clinic Assessment: 1. History of Osteoarthritis: Not Applicable History of Rheumatoid Arthritis: Not Applicable 2. Height: 5 ft. 10 in. 177.8 cm. Weight: 185.4 lb. oz. 84.097 kg. Patient's BMI: 26.6 3. Vital Signs: BP: 129/91 Pulse: 72 Resp: 14 Temp: 02 Sat: 100 ECG Mon: 4. Pain Intensity: 3 5. Fall Risk: Dizziness: N Needs help standing or walking: N Fallen in the last 3 months: N Fall risk comments: 6. Patient on Blood Thinner: None 7. History of Hypertension: Y 8. Opioid Therapy greater than 6 weeks: Y Opiate Contract Signed: 05/20/16 9. Risk Assessment Tool Provided: O LOW RISK 10. Functional Assessment Tool: 11. Recreational Drug Use: Never Drug Type: Tobacco Use: Former Smoker Tobacco Type: Amount or Packs/day: How Many Years: Alcohol Use: Yes Frequency: Weekly Quant: 2
--- NOTE | 2019-05-09 07:48 | HPC ---
[facility] [address] [place] [address] PAIN MANAGEMENT CONSULTATION Name: DARIUS JAIME Room #: REG [facility]#: [id number] Admission: 05/03/19 ������������������ Attend Phys: Stephane Orona DO Discharge: ������������������ Date of : 69 Report #: [id number] THIS REPORT FOR: //name// CC: Joe Chandler DO DATE OF SERVICE: 05/03/2019 REFERRING PHYSICIAN: Uday Chandler D.O. CHIEF COMPLAINT: Neck pain and right upper extremity pain with paresthesias. HISTORY OF PRESENT ILLNESS: As you know, the patient is a very pleasant 53-year-old male returning in followup visit for continuation of medication management. He feels medications are working beneficially for pain control. He reports pain level today of 3/10. He describes pain as cramping, tingling and stabbing, exacerbated with standing, walking and cold temperatures, improves with medications. He has just recently returned from a near month long trip to [place] where he was doing a significant amount of backpacking and despite this activity, his pain did not worsen. He returns today in followup visit for medication management feeling medications are working well. He is denying any side effects to the treatment. ALLERGIES: No known drug allergies. CURRENT MEDICATIONS: Cymbalta 60 mg once a day, Gralise 1800 mg p.o. at bedtime, tramadol ER 200 mg p.o. at bedtime, tramadol 50 mg up to 4 times a day p.r.n. pain, Benicar 40 mg per day, Zetia 10 mg per day and Flexeril 10 mg per day. IMAGING DATA: No new imaging available. PHYSICAL EXAMINATION: VITAL SIGNS: Blood pressure 129/91, pulse is 72, respiratory rate 14 and unlabored. The patient is 100% on room air. Height 5 feet 10 inches tall, weight 185.4 pounds and BMI calculated 26.6. GENERAL: Well-developed, well-nourished and well-hydrated 53-year-old male, appearing stated age, placing current pain score around 3/10. HEENT: Normocephalic and atraumatic. Pupils equal, round and reactive to light. EXTREMITIES: Show no clubbing, no cyanosis and no edema. MUSCULOSKELETAL: Upper extremity strength symmetrical 5/5. Muscle bulk and tone equal and symmetrical. Spurlings test positive right, negative left. Cervical provocation is met with mild increasing pain, no restriction of motion. [facility] [address] [place] [address] PAIN MANAGEMENT CONSULTATION Name: DARIUS JAIME Damien Room #: REG [facility]#: [id number] Admission: 05/03/19 ������������������ Attend Phys: Stephane Orona DO Discharge: ������������������ Date of : 69 Report #: [id number] Deep tendon reflexes are symmetrical at biceps, brachialis and triceps. ASSESSMENT: 1. Cervical radiculopathy. 2. Displacement of a cervical intervertebral disk with radiculopathy. 3. Cervical spondylosis with radiculopathy. 4. Chronic intractable pain. 5. Opioid dependency. 6. Complicated medication management requiring scheduled medications. PLAN: 1. The patient returns today in followup visit for continuation of medication therapy. He has just completed nearly a month long trip to [place] where he was quite active and despite this increase in activity, he did not exacerbation of symptoms. He is very pleased with response to the medication management, returning today, requesting refill on the therapy. He feels he is doing very well from a Pain Management standpoint and wishes to continue this therapy. 2. We reviewed the fact that opiate medications are being used to provide analgesia adequate to support activities of daily living, not attempting to achieve a specific pain score on the 0-10 Visual Analog Scale. The current opiate medications are providing sufficient analgesia to allow the patient to participate in activities of daily living. The patient is not exhibiting any aberrant behavior suggestive of drug diversion. The patient is not having any adverse reactions to medications. The patient is not suffering from daytime somnolence or mental acuity changes. The patient is managing opiate-induced constipation with appropriate poni-bhn-wrcwzvs agents and dietary considerations. The patient was counseled on concern for caution with operating a motor vehicle while using opiate medications. A physical exam was performed and the patient's functional status was evaluated. All patients with back pain were advised against the bed rest greater than 4 days and were advised to return to normal activities. Pain score assessment was noted and the treatment plan was reviewed with the patient. All current medications, both prescribed and OTC were reviewed and reconciled on the electronic medical record. Tobacco screening was accomplished and smoking cessation was advised when indicated. BMI was noted and diet/exercise modification was recommended for all patients following outside normal parameters. I reviewed with the patient today their responsibilities to safeguard prescription medications, reviewed their responsibility to utilize medications only as prescribed by the physician. They are to seek and receive pain medications only from 1 physician group ([facility]). They are to use 1 pharmacy and keep the clinic informed if they change pharmacies. Their responsibilities include making followup visits in a timely fashion and to avoid abrupt discontinuation of medication usage. Their responsibilities further [address] [address] PAIN MANAGEMENT CONSULTATION Name: DARIUS JAIME Room #: REG CULLEN Bearden#: [id number] Admission: 05/03/19 ������������������ Attend Phys: Stephane Orona DO Discharge: ������������������ Date of : 69 Report #: [id number] include bringing their medications (bottles from the pharmacy with residual pills) to the visit for possible confirmation of pill counts and the patient understands it is their responsibility to submit to random drug screens to ensure both that the medications prescribed are present, and that no other controlled substances are present. All prescriptions provided today were generated electronically. 3. We have reviewed the patient's PDMP. There are no aberrant entries. He is positive for appropriate medications and previous drug screen. 4. The patient was provided a prescription of tramadol ER 200 mg dose 1 tab p.o. at bedtime. I have given the patient #30 tablets, releasing today, 4 weeks from today, 8 weeks from today, 3 months' worth of medication. 5. The patient was provided refill prescription of tramadol 50 mg dose immediate release 1 tab p.o. q. 6 hours p.r.n. for pain, #120, releasing today, 4 weeks from today, 8 weeks from today, 3 months' worth of medication. 6. The patient was provided prescription of Gralise 600 mg dose. He is to take 3 tabs p.o. at bedtime, #90 tablets, 2 refills, 3 months' worth of medication. 7. The patient was provided prescription of Cymbalta 60 mg dose 1 tab p.o. q.a.m., I have given the patient #30 tablets, releasing today, 4 weeks from today, 8 weeks from today, 3 months' worth of medication. 8. We will see the patient back in followup visit on an as needed basis. We are pleased to see he is doing well with medication management. We did discuss the possibility of having him undergo cervical epidural injections if necessary to address any recurrent symptoms. At present, the patient is doing very well. We will delay this option. ��������������������������������������������� <ELECTRONICALLY SIGNED> ���������������������������������������� By: Stephane Orona DO ��������������������������������������������� 05/09/19 0748 [id number] Stephane Orona DO /nt
== END ==
LOC: PAIN 06:53
DX: M47.22 Other spondylosis with radiculopathy, cervical region (principal); M50.10 Cervical disc disorder with radiculopathy, unspecified cervical region; G89.4 Chronic pain syndrome; F11.20 Opioid dependence, uncomplicated; Z79.899 Other long term (current) drug therapy

== ENCOUNTER → 2019-07-25 | Outpatient (CLI) | payer BC, OTHER ==
[~2019-07-25] VITALS: Ht 177.8 cm; Wt 85.7 kg
[2019-07-25 08:15] VITALS: BP 134/89
--- NOTE | 2019-07-25 08:29 | NUR ---
Pain Clinic Assessment: 1. History of Osteoarthritis: Not Applicable History of Rheumatoid Arthritis: Not Applicable 2. Height: 5 ft. 10 in. 177.8 cm. Weight: 189.0 lb. oz. 85.730 kg. Patient's BMI: 27.1 3. Vital Signs: BP: 134/89 Pulse: 68 Resp: 16 Temp: 02 Sat: 100 ECG Mon: 4. Pain Intensity: 3 BACK 8 ELBOW 5. Fall Risk: Dizziness: N Needs help standing or walking: N Fallen in the last 3 months: N Fall risk comments: 6. Patient on Blood Thinner: None 7. History of Hypertension: Y 8. Opioid Therapy greater than 6 weeks: Y Opiate Contract Signed: 05/20/16 9. Risk Assessment Tool Provided: O LOW RISK 10. Functional Assessment Tool: 11. Recreational Drug Use: Never Drug Type: Tobacco Use: Former Smoker Tobacco Type: Amount or Packs/day: How Many Years: Alcohol Use: Yes Frequency: Quant:
--- NOTE | 2019-07-26 08:40 | HPC ---
[facility] [address] [place] [address] PAIN MANAGEMENT CONSULTATION Name: DARIUS JAIME Room #: REG Rhonda Bearden#: [id number] Admission: 07/25/19 Attend Phys: Mary De La Garza Discharge: Date of : 69 Report #: [id number] THIS REPORT FOR: //name// CC: Mary Calderón Yeyo DO EMERSON CHANDLER DO Emerson Chandler DATE OF SERVICE: 07/25/2019 CHIEF COMPLAINT: Neck pain, right upper extremity pain with paresthesias. HISTORY OF PRESENT ILLNESS: As you know, this is a 53-year-old gentleman who returns to the pain clinic today for a refill of his medications that he uses to help his ongoing neck pain and right upper extremity pain. Today, he is also reporting right arm tendinitis that started about 4 days ago. His pain is characterized by a cramping, aching, stabbing pain of 3/10 in his neck, but an 8/10 in his elbow today. It is worse with using his arm, standing and walking. His medication is very beneficial in controlling most of his pain and he has been using a wrap on his elbow to try and relieve the tendinitis discomfort. He would like refills of his medications today, which he finds very beneficial and does not cause any daytime sleepiness or constipation and wondering about treatment options for his right elbow today. ALLERGIES: No known drug allergies. CURRENT LIST OF MEDICATIONS: Tramadol ER 200 mg daily, tramadol 50 mg up to 4 times a day, Gralise 1800 mg at bedtime, Cymbalta 60 mg daily, Benicar 40 mg daily, Zetia 10 mg daily, Flexeril 10 mg p.r.n. PQRS: 1. He denies osteoarthritis or rheumatoid arthritis. 2. Height is 5 feet 10 inches, weight is 189, BMI is 27. 3. Blood pressure 134/89, pulse is 68, respirations 16, oxygen sat is 100. 4. Pain score is 3-8. 5. Denies dizziness, does not need help walking or standing, has not fallen in the last 3 months. 6. The patient is not on any blood thinners, but does take medicine for hypertension. 7. Opioid therapy is greater than 6 weeks; therefore, an opiate signed contract is on the chart. Risk assessment tool is low. Functional assessment is . 8. Recreational drug use, denies. He is a former smoker. Does occasionally drink alcohol. According to the prescription monitoring system, the patient is filling appropriately for his medications, is due [place] [address] PAIN MANAGEMENT CONSULTATION Name: DARIUS JAIME Damien Room #: REG CULLEN Bearden#: [id number] Admission: 07/25/19 Attend Phys: Mary De La Garza Discharge: Date of : 69 Report #: [id number] PHYSICAL EXAMINATION: GENERAL: This is a well-developed, well-nourished 53-year-old gentleman who appears his stated age, placing his pain score from 3-8 today. HEENT: Normocephalic, atraumatic. Pupils equal, round and reactive to light. EXTREMITIES: No clubbing, no cyanosis, no edema. Does complain of right tendinitis; it is tender to the touch, right elbow, no swelling noted. MUSCULOSKELETAL: Upper extremity strength is symmetrical. Muscle bulk and tone is equal. Cervical provocation is met with mild increasing pain, no restriction of motion. ASSESSMENT: 1. Cervical radiculopathy. 2. Displacement of cervical intervertebral disk with radiculopathy. 3. Cervical spondylosis with radiculopathy. 4. Chronic intractable pain. 5. Opioid dependency. 6. Tendinitis of the right elbow. 7. Complicated medical management requiring scheduled medications. We reviewed the fact that opiate medications are being used to provide analgesia adequate to support activities of daily living, not attempting to achieve a specific pain score on the 0-10 Visual Analog Scale. The current opiate medications are providing sufficient analgesia to allow the patient to participate in activities of daily living. The patient is not exhibiting any aberrant behavior suggestive of drug diversion. The patient is not having any adverse reactions to medications. The patient is not suffering from daytime somnolence or mental acuity changes. The patient is managing opiate-induced constipation with appropriate mftn-voo-fshkpmr agents and dietary considerations. The patient was counseled on concern for caution with operating a motor vehicle while using opiate medications. A physical exam was performed and the patient's functional status was evaluated. All patients with back pain were advised against the bed rest greater than 4 days and were advised to return to normal activities. Pain score assessment was noted and the treatment plan was reviewed with the patient. All current medications, both prescribed and OTC were reviewed and reconciled on the electronic medical record. Tobacco screening was accomplished and smoking cessation was advised when indicated. BMI was noted and diet/exercise modification was recommended for all patients following outside normal parameters. I reviewed with the patient today their responsibilities to safeguard prescription medications, reviewed their responsibility to utilize medications only as prescribed by the physician. They are to seek and receive pain medications only from 1 physician group ([facility]). They are to use 1 pharmacy and keep the clinic informed if they change pharmacies. Their responsibilities include making followup visits in a timely fashion and to avoid [place] [id number] PAIN MANAGEMENT CONSULTATION Name: DARIUS JAIME aDmien Room #: REG [facility]#: [id number] Admission: 07/25/19 Attend Phys: Mary De La Garza Discharge: Date of : 69 Report #: [id number] abrupt discontinuation of medication usage. Their responsibilities further include bringing their medications (bottles from the pharmacy with residual pills) to the visit for possible confirmation of pill counts and the patient understands it is their responsibility to submit to random drug screens to ensure both that the medications prescribed are present, and that no other controlled substances are present. All prescriptions provided today were generated electronically. PLAN: 1. We discussed treatment options with the patient today. The patient finds his medications very beneficial in controlling his pain; some days he does require 4 of his tramadol 50 mg, but he is able to get by with 3 most days. Scripts given today for Cymbalta 60 mg, #30, with 2 additional refills, Gralise 600 mg 3 tablets at dinner with 2 additional refills, tramadol 50 mg, #120, with 2 refills and tramadol ER, #30, with 2 additional refills. 2. We did discuss his tendinitis in his right elbow. He is wearing a brace to the elbow today. I encouraged him to use that as well as alternating heat or ice and to use Voltaren gel, which he has at home to that area 3-4 times a day and alternate that with meloxicam 7.5 mg if it becomes bothersome for several weeks. He is to call to make an appointment with Dr. Stephane Orona. 3. The patient will follow up in 3 months, unless needed earlier. The patient is seen in collaboration today with Dr. Stephane Orona. <ELECTRONICALLY SIGNED> By: Mary De La Garza 07/26/19 0840 [id number] Mary De La Garza /nt
== END ==
LOC: PAIN 06:45
DX: M47.22 Other spondylosis with radiculopathy, cervical region (principal); M50.10 Cervical disc disorder with radiculopathy, unspecified cervical region; G89.4 Chronic pain syndrome; F11.20 Opioid dependence, uncomplicated; M77.9 Enthesopathy, unspecified; Z79.899 Other long term (current) drug therapy

== ENCOUNTER → 2019-10-03 | Outpatient (CLI) | payer BC, OTHER ==
[~2019-10-03] VITALS: Ht 177.8 cm; Wt 86.2 kg
[2019-10-03 08:08] VITALS: BP 117/79
--- NOTE | 2019-10-03 08:20 | NUR ---
Pain Clinic Assessment: 1. History of Osteoarthritis: Not Applicable History of Rheumatoid Arthritis: Not Applicable 2. Height: 5 ft. 10 in. 177.8 cm. Weight: 190.0 lb. oz. 86.184 kg. Patient's BMI: 27.3 3. Vital Signs: BP: 117/79 Pulse: 84 Resp: 14 Temp: 02 Sat: 98 ECG Mon: 4. Pain Intensity: 3 5. Fall Risk: Dizziness: N Needs help standing or walking: N Fallen in the last 3 months: N Fall risk comments: 6. Patient on Blood Thinner: None 7. History of Hypertension: Y 8. Opioid Therapy greater than 6 weeks: Y Opiate Contract Signed: 05/20/16 9. Risk Assessment Tool Provided: O LOW RISK 10. Functional Assessment Tool: 11. Recreational Drug Use: Never Drug Type: Tobacco Use: Former Smoker Tobacco Type: Amount or Packs/day: How Many Years: Alcohol Use: Yes Frequency: Quant:
--- NOTE | 2019-10-04 09:10 | HPC ---
[facility] [address] [place] [address] PAIN MANAGEMENT CONSULTATION Name: DARIUS JAIME Room #: REG CULLEN Bearden#: [id number] Admission: 10/03/19 Attend Phys: Mary De La Garza Discharge: Date of : 69 Report #: [id number] THIS REPORT FOR: //name// CC: Mary De La Garza DANISHA GURROLA DO EMERSON CHANDLER DO Emerson Chandler DATE OF SERVICE: 10/03/2019 CHIEF COMPLAINT: Neck pain, right upper extremity pain and paresthesias. HISTORY OF PRESENT ILLNESS: This is a very pleasant 54-year-old gentleman who returns to the pain clinic today for refill of his medications that he uses to help treat his ongoing neck and right upper extremity. He occasionally does have some lower back pain as well. He reports a pain score of 3/10. He states he is doing quite well. He does have occasional stabbing and tingling in his arm and neck that is worse when he is walking cold weather and standing for prolonged periods. He feels that his medication is very beneficial. The patient did report that he had had some tendinitis in his right arm in the last visit. He has been continuing to use his Voltaren gel on that extremity as well as taking a Medrol Dosepak that was very beneficial in decreasing his pain in that elbow. ALLERGIES: No known drug allergies. CURRENT LIST OF MEDICATIONS: Tramadol 50 mg p.r.n., tramadol 200 mg daily, Gralise 800 mg at dinner, Cymbalta 60 mg daily, Benicar 40 mg, Zetia 10 mg, and Flexeril p.r.n. PATIENT'S PQRS: 1. The patient denies any osteoarthritis or rheumatoid arthritis. 2. Height 5 feet 10 inches, weight is 190 and BMI is 27. 3. Vital signs 117/79, pulse is 84, respirations 14, oxygen sat is 98. 4. Pain score 3/10. 5. Denies dizziness, does not need help walking or standing, has not fallen in the last 3 months. 6. The patient is not on any blood thinners, but does take medicine for hypertension. 7. Opioid therapy is greater than 6 weeks; therefore, an opioid signed contract is on the chart. Risk assessment is low. Functional assessment is . 8. Recreational drug use, he denies. He is a former smoker and occasionally drinks alcohol. According to the prescription monitoring system, the patient is filling [facility] [address] [place] [address] PAIN MANAGEMENT CONSULTATION Name: DARIUS JAIME [id number] Admission: 10/03/19 Attend Phys: Mary De La Garza Discharge: Date of : 69 Report #: [id number] Danisha Gurrola. He will be due to fill in 2 weeks. There is a urine drug screen on the chart that is appropriate for his medication. He reports that he safeguards his medications. PHYSICAL EXAMINATION: GENERAL: This is a well-developed, well-nourished 54-year-old gentleman who appears his stated age, placing his current pain score at 3/10 today. He is alert and orientated. HEENT: Normocephalic, atraumatic. Pupils equal, round and reactive to light. Mucous membranes are moist. EXTREMITIES: No clubbing, no cyanosis, no edema. Does have some tenderness in his right arm at his elbow. No swelling noted. MUSCULOSKELETAL: Cervical provocation is met with mild pain with flexion and extension of his neck. Upper extremity strength is symmetrical at 5/5. Muscle bulk and tone are symmetrical as well. ASSESSMENT: 1. Cervical radiculopathy. 2. Displacement of cervical intervertebral disk with radiculopathy. 3. Cervical spondylosis with radiculopathy. 4. Chronic intractable pain. 5. Opioid dependency. 6. Complicated medical management requiring scheduled medications. We reviewed the fact that opiate medications are being used to provide analgesia adequate to support activities of daily living, not attempting to achieve a specific pain score on the 0-10 Visual Analog Scale. The current opiate medications are providing sufficient analgesia to allow the patient to participate in activities of daily living. The patient is not exhibiting any aberrant behavior suggestive of drug diversion. The patient is not having any adverse reactions to medications. The patient is not suffering from daytime somnolence or mental acuity changes. The patient is managing opiate-induced constipation with appropriate lpvh-niq-zuoetjx agents and dietary considerations. The patient was counseled on concern for caution with operating a motor vehicle while using opiate medications. PLAN: 1. We discussed treatment options with the patient today. The patient finds his tramadol very beneficial in controlling his pain. He is here early for an appointment today due to going to be switching jobs and insurance companies at the end of the year. He is due to fill his medications on 10/17/2019. He will fill then. The second and third month, he may need to pay contreras for these medications while he is waiting his new insurance. We did advise the patient of Ret[employer] option for helping to pay for some of his medications. 2. Scripts sent electronically today for tramadol 50 mg, #120 and tramadol ER 200 mg, #30. These were given for 3 months, sent electronically to his [place] [id number] PAIN MANAGEMENT CONSULTATION Name: DARIUS JAIME Room #: [facility] CULLEN Bearden#: [id number] Admission: 10/03/19 Attend Phys: Mary De La Garza Discharge: Date of : 69 Report #: [id number]. 3. Gralise and Cymbalta were also refilled for a total of 3 months. 4. The patient denies any problems with constipation or daytime sleepiness. According to the CDC guidelines, his morphine milliequivalents are 44 MMEs per day under the CDC guidelines. The patient is seen in collaboration today with Dr. Danisha Gurrola. <ELECTRONICALLY SIGNED> By: Mary De La Garza 10/04/19 0910 [id number] Mary De La Garza /nt
== END ==
LOC: PAIN 06:33
DX: M47.22 Other spondylosis with radiculopathy, cervical region (principal); G89.4 Chronic pain syndrome; M50.10 Cervical disc disorder with radiculopathy, unspecified cervical region; F11.20 Opioid dependence, uncomplicated

== ENCOUNTER → 2020-01-23 | Outpatient (CLI) | payer BC, OTHER ==
[~2020-01-23] VITALS: Ht 177.8 cm; Wt 84.2 kg
[2020-01-23 08:17] VITALS: BP 127/80
--- NOTE | 2020-01-23 08:25 | NUR ---
Pain Clinic Assessment: 1. History of Osteoarthritis: Not Applicable History of Rheumatoid Arthritis: Not Applicable 2. Height: 5 ft. 10 in. 177.8 cm. Weight: 185.6 lb. oz. 84.188 kg. Patient's BMI: 26.6 3. Vital Signs: BP: 127/80 Pulse: 76 Resp: 16 Temp: 02 Sat: 100 ECG Mon: 4. Pain Intensity: 2 5. Fall Risk: Dizziness: N Needs help standing or walking: N Fallen in the last 3 months: N Fall risk comments: 6. Patient on Blood Thinner: None 7. History of Hypertension: Y 8. Opioid Therapy greater than 6 weeks: Y Opiate Contract Signed: 05/20/16 9. Risk Assessment Tool Provided: O LOW RISK 10. Functional Assessment Tool: 11. Recreational Drug Use: Never Drug Type: Tobacco Use: Former Smoker Tobacco Type: Amount or Packs/day: How Many Years: Alcohol Use: Yes Frequency: Quant:
--- NOTE | 2020-01-24 15:35 | HPC ---
[facility] [address] [place] [address] PAIN MANAGEMENT CONSULTATION Name: ADDISONDARIUS Room #: REG DINORAHRhonda Bearden#: [id number] Admission: 01/23/20 Attend Phys: Mary De La Garza Discharge: Date of : 69 Report #: [id number] THIS REPORT FOR: cc: Uday Chandler Theodore M. DO Hocker,Mary DANIELS ~ DATE OF SERVICE: 01/23/2020 CHIEF COMPLAINT: Neck pain and bilateral extremity pain and paresthesias. HISTORY OF PRESENT ILLNESS: This is a very pleasant 54-year-old gentleman who returns to the pain clinic today for refill of his medications. He is doing quite well with his neck pain, rating a score 2/10 today. He feels that his tendinitis has resolved in his right elbow. Occasionally, he will have twinges in that area. Today, he is requesting refills of his medication and a refill of meloxicam. He had this medicine previously from his primary care doctor. He has recently switched doctors and is trying to avoid going to doctors during this time of COVID and wondering if we could prescribe that for him today. He states that his pain is worse with standing and walking, but finds all of his medications very beneficial. The patient reports that he has been decreasing his Gralise. He was experiencing some sexual difficulty with taking 1800 mg a day. Currently, he has been taking 1200 mg wondering if he is able to decrease that further or if he should continue at his current dose. ALLERGIES: No known drug allergies. CURRENT LIST OF MEDICATIONS: Gralise 1200 mg daily, tramadol ER 200 mg daily, tramadol 50 mg p.r.n., Benicar, Zetia, Flexeril, Cymbalta 60 mg, meloxicam 7.5 mg. PQRS: 1. He denies any osteo or rheumatoid arthritis. 2. Height is 5 feet 10 inches, weight is 185, BMI is 26. 3. Vital signs, 127/80, pulse is 76, respirations 16, oxygen sat is 100. 4. Pain score is 12/04. 5. Denies dizziness, does not need help walking or standing, has not fallen in the last 3 months. 6. The patient is not on any blood thinners or medication. He does take medicines for hypertension. 7. Opioid therapy is greater than 6 weeks; therefore, an opioid signed contract is on the chart. Risk assessment tool is low. Functional assessment is . [address] [address] PAIN MANAGEMENT CONSULTATION Name: DARIUS JAIME Damien Room #: REG [facility]#: [id number] Admission: 01/23/20 Attend Phys: Mary De La Garza Discharge: Date of : 69 Report #: [id number] 8. Recreational drug use, he denies. He is a former smoker and does occasionally drink alcohol. According to the prescription monitoring system, the patient is filling appropriately for his medicines. He is due to fill these medicines today. There is an opioid random drug screen on the chart that is appropriate for his medications. According to the CDC guidelines, his morphine mEq is under 50 MME. PHYSICAL EXAMINATION: GENERAL: This is alert and orientated, very pleasant 54-year-old gentleman who appears his stated age, placing his current pain score at 2/10 today. HEENT: Normocephalic, atraumatic. Pupils equal, round and reactive to light. EXTREMITIES: No clubbing, no cyanosis, no edema, tenderness in his right elbow, no swelling noted. MUSCULOSKELETAL: Cervical provocation is met with mild increasing pain with no restrictions in range of motion. Upper extremity strength is symmetrical at 5/5. Muscle bulk and tone is equal and symmetrical. ASSESSMENT: 1. Cervical radiculopathy. 2. Cervical spondylosis with radiculopathy. 3. Chronic intractable pain. 4. Opioid dependency. 5. Tendinitis of the right elbow. 6. Complicated medical management under terms of written opioid agreement. We reviewed the fact that opiate medications are being used to provide analgesia adequate to support activities of daily living, not attempting to achieve a specific pain score on the 0-10 Visual Analog Scale. The current opiate medications are providing sufficient analgesia to allow the patient to participate in activities of daily living. The patient is not exhibiting any aberrant behavior suggestive of drug diversion. The patient is not having any adverse reactions to medications. The patient is not suffering from daytime somnolence or mental acuity changes. The patient is managing opiate-induced constipation with appropriate tzce-uwk-xzyxxie agents and dietary considerations. The patient was counseled on concern for caution with operating a motor vehicle while using opiate medications. A physical exam was performed and the patient's functional status was evaluated. All patients with back pain were advised against the bed rest greater than 4 days and were advised to return to normal activities. Pain score assessment was noted and the treatment plan was reviewed with the patient. All current medications, both prescribed and OTC were reviewed and reconciled on the electronic medical record. Tobacco screening was accomplished and smoking cessation was advised when indicated. BMI was noted and diet/exercise modification was recommended for all patients following outside normal [facility] [address] [place] [address] PAIN MANAGEMENT CONSULTATION Name: DARIUS JAIME Room #: REG CULLEN Bearden#: [id number] Admission: 01/23/20 Attend Phys: Mary De La Garza Discharge: Date of : 69 Report #: [id number] parameters. I reviewed with the patient today their responsibilities to safeguard prescription medications, reviewed their responsibility to utilize medications only as prescribed by the physician. They are to seek and receive pain medications only from 1 physician group ( [facility]). They are to use 1 pharmacy and keep the clinic informed if they change pharmacies. Their responsibilities include making followup visits in a timely fashion and to avoid abrupt discontinuation of medication usage. Their responsibilities further include bringing their medications (bottles from the pharmacy with residual pills) to the visit for possible confirmation of pill counts and the patient understands it is their responsibility to submit to random drug screens to ensure both that the medications prescribed are present, and that no other controlled substances are present. All prescriptions provided today were generated electronically. PLAN: 1. We discussed treatment options with the patient today. The patient feels that his overall medication regime is very beneficial keeping him active at work with very minimal side effects. Today, we will refill his tramadol ER 200 mg once a day, #30 with 2 additional refills as well as tramadol 50 mg q.i.d., #120 with 2 additional refills. These will be sent electronically by Dr. Stephane Orona for 3 months. 2. We will refill his Cymbalta 60mg, #30, 1 daily with 2 additional refills. This helps with some neuropathic pain that he experiences. The patient had been taking Gralise for neuropathic pain as well. He was having sexual difficulty as a side effect. He has been reducing this from three tablets a day to now 2. I encouraged that he can decrease to 1 tablet daily. If the symptoms resolve, he can continue at that dose as long as he does not have increase nerve pain in his arm. If that does return, he may need to increase to 2 at dinner time. 3. We will write a script for meloxicam 7.5 twice a day, #60 with 2 additional refills. This will be sent electronically does help with his ongoing tendinitis in his right elbow. 5. The patient will return in 3 months. The patient is seen today in collaboration with Dr. Stephane Orona. <ELECTRONICALLY SIGNED> By: Mary De La Garza 01/24/20 1535 1035 [id number] Mary De La Garza /nt
== END ==
LOC: PAIN 06:40
DX: M47.22 Other spondylosis with radiculopathy, cervical region (principal); G89.29 Other chronic pain; M77.9 Enthesopathy, unspecified; R20.2 Paresthesia of skin; F11.20 Opioid dependence, uncomplicated; Z79.899 Other long term (current) drug therapy

== ENCOUNTER → 2020-04-16 | Outpatient (CLI) | payer BC, OTHER ==
[~2020-04-16] VITALS: Ht 177.8 cm; Wt 82.7 kg
[~2020-04-16] MED LIST changes: +MEDROLDOSEPACK PO
[2020-04-16 09:24] VITALS: BP 129/86
--- NOTE | 2020-04-16 09:42 | NUR ---
Pain Clinic Assessment: 1. History of Osteoarthritis: DENIES History of Rheumatoid Arthritis: DENIES 2. Height: 5 ft. 10 in. 177.8 cm. Weight: 182.4 lb. oz. 82.736 kg. Patient's BMI: 26.2 3. Vital Signs: BP: 129/86 Pulse: 75 Resp: 14 Temp: 02 Sat: 100 ECG Mon: 4. Pain Intensity: 7 5. Fall Risk: Dizziness: N Needs help standing or walking: N Fallen in the last 3 months: N Fall risk comments: 6. Patient on Blood Thinner: None 7. History of Hypertension: Y 8. Opioid Therapy greater than 6 weeks: Y Opiate Contract Signed: 05/20/16 9. Risk Assessment Tool Provided: O LOW RISK 10. Functional Assessment Tool: 11. Recreational Drug Use: Never Drug Type: Tobacco Use: Former Smoker Tobacco Type: Amount or Packs/day: How Many Years: Alcohol Use: Yes Frequency: Weekly Quant: 2
--- NOTE | 2020-04-16 12:44 | HPC ---
[facility] [address] [place] [address] PAIN MANAGEMENT CONSULTATION Name: DRAIUS JAIME Damien Room #: REG CULLEN Suleiman#: [id number] Admission: 04/16/20 Attend Phys: Stephane Orona DO Discharge: Date of : 69 Report #: [id number] THIS REPORT FOR: cc: Uday Chandler Theodore M. DO Johnson, James E. DO ~ DATE OF SERVICE: 04/16/2020 REFERRING PHYSICIAN: Uday Chandler DO CHIEF COMPLAINT: Neck pain, right upper extremity pain with paresthesias. HISTORY OF PRESENT ILLNESS: As you know, the patient is a very pleasant 54-year-old male returning in followup visit to discuss medication management changes. 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 This appears to be radicular in origin, radiating now on a myotomal distribution affecting the right upper thoracic area and shoulder region. He has not sought evaluation or treatment nor has he undergone reimaging of the area to further evaluate. The patient states that this began about 45 days ago and has progressively worsened. He returns today to discuss his concerns of this right neck pain and to discuss medication management. ALLERGIES: No known drug allergies. CURRENT MEDICATIONS: Duloxetine 60 mg once a day, meloxicam 7.5 mg twice a day, tramadol ER 200 mg once a day, tramadol IR 50 mg 4 times a day, olmesartan 40 mg once a day Zetia 10 mg once a day, cyclobenzaprine 10 mg t.i.d. p.r.n. pain. SOCIAL HISTORY: The patient reports himself as a former smoker. He denies IV or illicit drug use. Admits to an occasional alcohol beverage. He is working, not receiving workmen's compensation nor is trying to obtain disability benefits. He is unaccompanied at today's visit. IMAGING: There is no new imaging available. PHYSICAL EXAMINATION: VITAL SIGNS: Blood pressure 129/86, pulse 75, respiratory rate 14 and unlabored. The patient is 100% on room air. Height 5 feet 10 inches tall, weight 182.4 pounds, BMI calculated 26.2. GENERAL: Well-developed, well-nourished, well-hydrated 54-year-old male appearing stated age. Placing pain today at around 7/10. HEENT: Normocephalic, atraumatic. Pupils equal, round and reactive. NEUROLOGIC: Speech is fluent. The patient deemed an excellent historian. LUNGS: Remain clear. No wheeze, rh[place]chi [place] [address] PAIN MANAGEMENT CONSULTATION Name: DARIUS JAIME Damien Room #: REG [facility]..#: [id number] Admission: 04/16/20 Attend Phys: Stephane Orona DO Discharge: Date of : 69 Report #: [id number] CARDIOVASCULAR: Regular. No appreciable gallop, no rub. ABDOMEN: Soft, nontender. EXTREMITIES: Show no clubbing, no cyanosis, no edema. MUSCULOSKELETAL: The patient has palpatory tenderness over the upper thoracic area, specifically the trapezius and the rhomboids on the right. There is decreased tactile sensation radiating along the C6 dermatome on the right, negative left. Spurling's test remains positive. There does not appear to be muscle atrophy. Cervical provocation testing is increased with pain with rotation to the right lateral flexion to the right. ASSESSMENT: 1. Cervical radiculopathy. 2. Displacement of cervical intervertebral disk with radiculopathy. 3. Cervical spondylosis with radiculopathy. 4. Chronic intractable pain. PLAN: 1. Based on today's physical exam and history the patient has provided, the description the patient uses in regards to pain as well as the distribution of symptoms, it would be considered a progressively worsening cervical radiculopathy. The patient is now experiencing more myotomal distribution than dermatomal distribution, which could indicate a change in his pathology in the cervical spine. We would recommend strongly, the patient look towards new imaging as he has had a change in his distribution of symptoms and intensity. The patient is agreeable to undergo new MRI. The most recent MRI we have of this patient was performed on 2011. I believe further imaging given this change in distribution and intensity is recommended. The patient will undergo MRI of the cervical spine without contrast at his earliest convenience. 2. The patient was provided a referral for MRI of cervical spine without contrast. We recommend the patient to undergo this imaging as quickly as possible. We will review the findings once they are available and discuss interventional treatments or changes in therapy that may be necessary. The patient will undergo the imaging and contact our clinic once he has completed this imaging, so that we can find the results. 3. The patient and I discussed the possible changes in medication management. We will start the patient on a Medrol Dosepak for this acute onset of pain. The patient was given a Medrol Dosepak to take as directed. He will contact our clinic if he does not receive good benefit with its use. 4. The patient was provided refill prescription of his Cymbalta 60 mg dose 1 tab p.o. q.a.m., #30 with 2 refills, 3 months' worth of medication. 5. The patient was provided prescription of meloxicam 7.5 mg twice a day with meals. He was given #60, 2 refills. 6. The patient was provided prescription of his tramadol ER 200 mg dose 1 tab p.o. q.a.m., #30 with 2 refills, 3 months' worth of medication. 7. The patient was provided prescription of tramadol 50 mg dose 1 tab p.o. q.i.d. p.r.n. pain, #120 with [address] [address] PAIN MANAGEMENT CONSULTATION Name: DARIUS JAIME Damien Room #: REG [facility].#: [id number] Admission: 04/16/20 Attend Phys: Stephane Orona DO Discharge: Date of : 69 Report #: [id number] 8. The patient will undergo urine drug screen for evaluation. This is part of the evaluation process required for patients on chronic opioids for monitoring. The patient is agreeable and underwent the procedure today. 9. We will see the patient back in followup visit once he has completed his MRI of the cervical spine. At that time, we will discuss treatment options based on the findings therein. The patient will contact our clinic once he has completed his MRI, so that we can find those results and we will discuss it over the phone if necessary. We do wish to have those results as quickly as possible. <ELECTRONICALLY SIGNED> By: Stephane Orona DO 04/16/20 1244 1109 [id number] Stephane Orona DO /dennys
== END ==
LOC: PAIN 06:49
PROVIDERS: ATTEND Anesthesiology Pain Medicine
DX: M50.33 Other cervical disc degeneration, cervicothoracic region (principal); M47.22 Other spondylosis with radiculopathy, cervical region; M79.604 Pain in right leg; R20.2 Paresthesia of skin; G89.29 Other chronic pain; Z79.899 Other long term (current) drug therapy

== ENCOUNTER → 2020-07-09 | Outpatient (CLI) | payer BC, OTHER ==
[~2020-07-09] VITALS: Ht 177.8 cm; Wt 84.1 kg
[~2020-07-09] MED LIST changes: +DULOXETINE HCL60 MG PO
[2020-07-09 10:30] VITALS: BP 130/80
--- NOTE | 2020-07-09 10:35 | NUR ---
Pain Clinic Assessment: 1. History of Osteoarthritis: Right Upper Extremity History of Rheumatoid Arthritis: DENIES 2. Height: 5 ft. 10 in. 177.8 cm. Weight: 185.4 lb. oz. 84.097 kg. Patient's BMI: 26.6 3. Vital Signs: BP: 130/80 Pulse: 89 Resp: 20 Temp: 02 Sat: 100 ECG Mon: 4. Pain Intensity: 7 5. Fall Risk: Dizziness: N Needs help standing or walking: N Fallen in the last 3 months: N Fall risk comments: 6. Patient on Blood Thinner: None 7. History of Hypertension: Y 8. Opioid Therapy greater than 6 weeks: Y Opiate Contract Signed: 05/20/16 9. Risk Assessment Tool Provided: O LOW RISK 10. Functional Assessment Tool: 11. Recreational Drug Use: Never Drug Type: Tobacco Use: Former Smoker Tobacco Type: Cigarettes Amount or Packs/day: 2 PACKS How Many Years: 30 Alcohol Use: Yes Frequency: Weekly Quant: 3-4 WINE
--- NOTE | 2020-07-09 13:36 | HPC ---
[facility] [address] [place] [address] PAIN MANAGEMENT CONSULTATION Name: ADDISONDARIUS Room #: REG DINORAHRhonda Bearden#: [id number] Admission: 07/09/20 Attend Phys: Mary De La Garza Discharge: Date of : 69 Report #: [id number] THIS REPORT FOR: cc: Uday Chandler Theodore M. DO Hocker, Amanda CNS ~ CC: Stephane Orona DO DATE OF SERVICE: 07/09/2020 CHIEF COMPLAINT: Neck pain, right upper extremity pain and paresthesias. HISTORY OF PRESENT ILLNESS: As you know, this is a very pleasant 54-year-old gentleman who returns to the pain clinic for ongoing neck issues that radiates down his right arm as well as into his right upper thoracic area. He states this has been ongoing for at least 6 months. He has tried ongoing medical management for quite some time. At the last visit with Dr. Stephane Orona, we did prescribe a Medrol Dosepak, which was ineffective in reducing his pain. He states that the Tramadol medications that normally would help relieve most of his pain has been less effective as well. He is considering surgical options at this point due to the decreasing effects of conservative treatments. The patient does do stretching at home and exercises, but they have been ineffective as well. He has had epidurals in the past, but it has been several years ago. He is also considering a repeat injection. Today, the patient is rating his pain a 7/10 again in his neck, in his right upper back and right arm that radiates into his hand. It is a sharp, stabbing, numbness and tingly feeling, worse with any activity and even lying down. The meds have been ineffective in treating this pain for the last few months. He denies problems with constipation or daytime somnolence as a result of his medications. ALLERGIES: No known drug allergies. CURRENT LIST OF MEDICATIONS: Tramadol ER 200 mg daily, tramadol 50 mg q. 6 hours p.r.n., meloxicam 7.5 mg b.i.d., Cymbalta 60 mg, Benicar, Zetia, Flexeril. PQRS: 1. He has osteoarthritis in his upper extremities and neck. Denies any rheumatoid arthritis. 2. Height is 5 feet 10 inches, weight is 185, BMI is 26. 3. Vital signs; blood pressure 130/80, pulse is 89, respirations 20, oxygen sat is 100, pain score 7/10. 4. Fall risk. Denies dizziness, does not need help walking or standing, has not fallen in the last 3 months. The patient is not on any blood thinners, but does take medicine for hypertension. [address] [address] PAIN MANAGEMENT CONSULTATION Name: DARIUS JAIME [facility] [id number] Admission: 07/09/20 Attend Phys: Mary De La Garza Discharge: Date of : 69 Report #: [id number] 5. Opioid therapy is greater than 6 weeks; therefore, an opioid signed contract is on the chart. Risk assessment is low. Functional assessment is 35/70. 6. Recreational drug use, he denies. He is a former smoker and occasionally drinks alcohol. According to the prescription monitoring system, the patient has been filling appropriately in a timely fashion. His morphine milliequivalent according to the CDC guidelines is 42. There is a recent drug screen on the chart that is appropriate for his medications. IMAGING: Cervical spine shows minimal cervical spondylitic changes at multiple levels. MRI was denied. His last one was in 2011. PHYSICAL EXAMINATION: GENERAL: This is a well-developed, well-nourished, well-hydrated 54-year-old gentleman who appears his stated age, placing his current pain score as a 7-8/10 today. HEENT: Normocephalic, atraumatic. Pupils equal, round and reactive to light. He is wearing a mask. EXTREMITIES: No clubbing, no cyanosis, no edema. MUSCULOSKELETAL: He has decreased sensation radiating along the C6 dermatomal distribution on the right. Spurling test is positive. Cervical provocation testing is met with increasing pain with rotation to the right lateral flexion. Mzaz-ys-ezjr tilt is met with significant pain. The patient has tenderness over his upper thoracic region in the trapezius and rhomboid areas as well as in his cervical spine. Muscle strength is equal bilateral at 5/5. ASSESSMENT: 1. Cervical radiculopathy. 2. Displacement of cervical intervertebral disk with radiculopathy. 3. Cervical spondylosis with radiculopathy. 4. Chronic intractable pain. We reviewed the fact that opiate medications are being used to provide analgesia adequate to support activities of daily living, not attempting to achieve a specific pain score on the 0-10 Visual Analog Scale. The current opiate medications are providing sufficient analgesia to allow the patient to participate in activities of daily living. The patient is not exhibiting any aberrant behavior suggestive of drug diversion. The patient is not having any adverse reactions to medications. The patient is not suffering from daytime somnolence or mental acuity changes. The patient is managing opiate-induced constipation with appropriate brvp-bvo-yqcbwvj agents and dietary considerations. The patient was counseled on concern for caution with operating a motor vehicle while using opiate medications. PLAN: [address] [place] [address] PAIN MANAGEMENT CONSULTATION Name: ADDISONDARIUS Damien Room #: REG [facility]#: [id number] Admission: 07/09/20 Attend Phys: Mary De La Garza Discharge: Date of : 69 Report #: [id number] 1. We discussed treatment options with the patient today. The patient has tried conservative treatments for years, trying to avoid surgery. He is now considering surgical options due to increasing pain that has not been relieved by opioid medication and adjunct medications. We will reorder a cervical MRI without contrast to see if this is hopefully approved by insurance. He did have a C-spine recently and continues to have increasing pain and numbness and tingling in his right arm that does interfere with his activities of daily living. I beleive a MRI is warranted based on his ongoing symptoms. 2. We will restart his Gralise. He had been on this in the past to help with significant numbness and tingling that he experienced but has diminished. Since it has returned we will start slowly at 600 mg at dinner. He is instructed to take this until Wednesday night, so 4 days. If his symptoms have not decreased he is encouraged to take 2 tablets at bed time. 3. After we have obtained the MRI results, we will schedule him back for a cervical epidural steroid injection by Dr. Stephane Orona to see if this will alleviate some of his symptoms. Otherwise, we will refer him on to a neurosurgeon who he has seen in the past with Dr. Pio Pike to discuss surgery. 4. We will refill his tramadol 50 mg, taking 4 tablets a day, #120 with 2 additional refills and tramadol 200 mg daily, quantity 30 with 2 additional refills. These will be sent electronically by Dr. Stephane Orona. 5. I will refill his Cymbalta 60 mg, #30 with 5 additional refills for a total of 6 months. 6. The patient is seen today in collaboration with Dr. Stephane Orona. We will await his MRI results before scheduling his MRI and hopefully see him back in the next week for this procedure. <ELECTRONICALLY SIGNED> By: Mary De La Garza 07/09/20 1336 1134 1217 Mary De La Garza /nt
== END ==
LOC: PAIN 06:41
PROVIDERS: ATTEND Clinical Nurse Specialist Adult Health
DX: M50.10 Cervical disc disorder with radiculopathy, unspecified cervical region (principal); M47.22 Other spondylosis with radiculopathy, cervical region; G89.29 Other chronic pain; R20.2 Paresthesia of skin; Z79.899 Other long term (current) drug therapy

== ENCOUNTER → 2020-10-01 | Outpatient (CLI) | payer BC, OTHER ==
[~2020-10-01] VITALS: Ht 177.8 cm; Wt 85.7 kg
[2020-10-01 09:30] VITALS: BP 128/92
--- NOTE | 2020-10-01 09:44 | NUR ---
Pain Clinic Assessment: 1. History of Osteoarthritis: Right Upper Extremity History of Rheumatoid Arthritis: DENIES 2. Height: 5 ft. 10 in. 177.8 cm. Weight: 189.0 lb. oz. 85.730 kg. Patient's BMI: 27.1 3. Vital Signs: BP: 128/92 Pulse: 92 Resp: 14 Temp: 02 Sat: 100 ECG Mon: 4. Pain Intensity: 4 5. Fall Risk: Dizziness: N Needs help standing or walking: N Fallen in the last 3 months: N Fall risk comments: 6. Patient on Blood Thinner: None 7. History of Hypertension: Y 8. Opioid Therapy greater than 6 weeks: Y Opiate Contract Signed: 05/20/16 9. Risk Assessment Tool Provided: O LOW RISK 10. Functional Assessment Tool: 11. Recreational Drug Use: Never Drug Type: Tobacco Use: Former Smoker Tobacco Type: Amount or Packs/day: How Many Years: Alcohol Use: Yes Frequency: Weekly Quant: 2
--- NOTE | 2020-10-01 12:45 | HPC ---
[facility] [address] [place] [address] PAIN MANAGEMENT CONSULTATION Name: ADDISONDARIUS Damien Room #: REG CULLEN Suleiman#: [id number] Admission: 10/01/20 Attend Phys: Stephane Orona DO Discharge: Date of : 69 Report #: [id number] THIS REPORT FOR: cc: Uday Chandler Theodore M. DO Johnson, James E. DO ~ DATE OF SERVICE: 10/01/2020 CHIEF COMPLAINT: Neck pain, right upper extremity pain with paresthesias. HISTORY OF PRESENT ILLNESS: As you know, the patient is a very pleasant 54-year-old male returning in followup visit with ongoing neck pain, right upper extremity pain with paresthesias. 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 He states that over the past couple of months, his pain continued to be present. The patient had contacted us by phone to advice of this injury. He was started on Medrol Dosepak, which provided only transient improvement. He then restarted his Gralise taking 300 mg p.o. at bedtime, which over a period of about 7 days improved his symptoms to a level of about 2/10. He is very pleased with response to the Gralise therapy, but cannot continue this option of treatment due to the excessive cost of the medication. He does have medication for acute flares of pain, but is unable to take the medication consistently due to the cost. Overall, the patient states that he has been unable to return to his normal activities of daily living after this exacerbation of neck pain and right upper back pain consistent with cervical radiculopathy. He returns for refill of medications. He is denying side effects to medication including sleepiness, disorientation, confusion, mental slowing or constipation. He feels medications are beneficial for pain control. He is very pleased with response to this therapy and wishes to continue treatment. ALLERGIES: No known drug allergies. CURRENT MEDICATIONS: Duloxetine 60 mg once a day, tramadol ER 200 mg once a day, tramadol IR 50 mg every 6 hours p.r.n. for pain, meloxicam 7.5 mg b.i.d., olmesartan 40 mg once a day, Zetia 10 mg once a day, cyclobenzaprine 10 mg t.i.d. p.r.n. muscle spasm. SOCIAL HISTORY: The patient reports he continues to smoke. Denies IV or illicit drug use. Denies any chronic alcohol use. He is working, not receiving workmen's compensation, unaccompanied today. IMAGING: MRI cervical spine obtained 07/22/2020 per our request shows C2-C3 unremarkable, C3-C4 shows mild degenerative disk loss, thecal sac measuring 9 mm with a moderate left and mild right neural foraminal narrowing. C4-C5 shows mild degenerative disk changes, diffuse disk bulge without flattening of the [address] [address] PAIN MANAGEMENT CONSULTATION Name: ADDISONDARIUS Room #: REG CULLEN Bearden#: [id number] Admission: 10/01/20 Attend Phys: Stephane Orona DO Discharge: Date of : 69 Report #: [id number] ventral cord. Uncovertebral hypertrophy is noted as well as some moderate bilateral neural foraminal narrowing, thecal sac measures 7 mm C5-C6, small posterior disk bulge contacting but does not frankly efface the ventral thecal sac with canal measuring 8 mm. There is ycjuabkg-rb-lbwtvs left and moderate right neural foraminal narrowing. C6-C7 shows mild bilateral neural foraminal narrowing. There is contact of the ventral cord, but no effacement of the thecal sac measuring 8 mm, C7-T1 unremarkable. PHYSICAL EXAMINATION: VITAL SIGNS: Blood pressure 128/92, pulse 92, respiratory rate 14 and unlabored. The patient is 100% on room air. Height 5 feet 10 inches tall, weight 189 pounds, BMI calculated 27.1. GENERAL: Well-developed, well-nourished, well-hydrated 54-year-old male appearing stated age, placing current pain score 4/10. HEENT: Normocephalic, atraumatic. Pupils equal, round and reactive. Speech fluent. The patient deemed an excellent historian. EXTREMITIES: Show no clubbing, no cyanosis. No appreciable edema. MUSCULOSKELETAL: Lower extremity strength is symmetrical 5/5. Spurling's test positive on the right. Cervical provocation testing is met with increased pain mainly with rotation and lateral flexion to the right, which is consistent with his findings in the past. Muscle bulk and tone appears equal and symmetrical. He does have some tenderness to palpation again over the rhomboid area on the right and the trapezius on the right, but no specific trigger points. ASSESSMENT: 1. Cervical radiculopathy. 2. Displacement of cervical intervertebral disk with radiculopathy. 3. Cervical spondylosis with radiculopathy. 4. Chronic intractable pain. PLAN: 1. The patient returns today in followup visit where we have reviewed his MRI in its entirety. We spent over 18 minutes of time reviewing the patient's MRI and discussing how the findings therein have changed from previous imaging dated 08/11/2012. We discussed the findings each level with the patient and described treatment options. After reviewing the imaging study, the patient chose to continue with current treatment. The patient has a full understanding of the findings of his MRI and how it correlates to his current symptoms. 2. We reviewed the fact that opiate medications are being used to provide analgesia adequate to support activities of daily living, not attempting to achieve a specific pain score on the 0-10 Visual Analog Scale. The current opiate medications are providing sufficient analgesia to allow the patient to participate in activities of daily living. The patient is not exhibiting any aberrant behavior suggestive of drug diversion. The patient is not having any adverse reactions to medications. The patient is not suffering from daytime somnolence or mental acuity changes. The patient is managing opiate-induced [facility] [address] [place] [address] PAIN MANAGEMENT CONSULTATION Name: DARIUS JAIME Room #: REG [facility] Suleiman#: [id number] Admission: 10/01/20 Attend Phys: Stephane Orona DO Discharge: Date of : 69 Report #: [id number] constipation with appropriate hjoo-bpm-hgwhqzo agents and dietary considerations. The patient was counseled on concern for caution with operating a motor vehicle while using opiate medications. A physical exam was performed and the patient's functional status was evaluated. All patients with back pain were advised against the bed rest greater than 4 days and were advised to return to normal activities. Pain score assessment was noted and the treatment plan was reviewed with the patient. All current medications, both prescribed and OTC were reviewed and reconciled on the electronic medical record. Tobacco screening was accomplished and smoking cessation was advised when indicated. BMI was noted and diet/exercise modification was recommended for all patients following outside normal parameters. I reviewed with the patient today their responsibilities to safeguard prescription medications, reviewed their responsibility to utilize medications only as prescribed by the physician. They are to seek and receive pain medications only from 1 physician group ( [facility]). They are to use 1 pharmacy and keep the clinic informed if they change pharmacies. Their responsibilities include making followup visits in a timely fashion and to avoid abrupt discontinuation of medication usage. Their responsibilities further include bringing their medications (bottles from the pharmacy with residual pills) to the visit for possible confirmation of pill counts and the patient understands it is their responsibility to submit to random drug screens to ensure both that the medications prescribed are present, and that no other controlled substances are present. All prescriptions provided today were generated electronically. 3. The patient was provided a prescription of tramadol ER 200 mg tablet 1 tab p.o. every day. He was given #30 tablets, 2 refills, 3 months' worth of medication. The patient was advised to take this medication as directed, not to rely on the medication prophylactically. 4. The patient was provided a prescription of tramadol 50 mg dose 1 tab p.o. q.i.d. p.r.n. pain. I have given the patient #120 tablets. The patient relies on this medication on a fairly inconsistent basis, which is appropriate. He does find benefit with its use. We will continue the breakthrough pain medication therapy at current dosing. 5. The patient was provided prescription of duloxetine 60 mg dose 1 tab p.o. every day. I have given the patient #30. There are multiple refills. The patient will continue this medication as it is providing some benefit from a neuropathic standpoint. 6. The patient was provided a prescription of Mobic 7.5 mg 1 tab p.o. q. 12 hours. I have given the patient #60 tablets to be taken twice a day with meals, 2 refills, 3 months' worth of medication. [facility] [address] [place] [address] PAIN MANAGEMENT CONSULTATION Name: DARIUS JAIME Room #: REG Rhonda Suleiman#: [id number] Admission: 10/01/20 Attend Phys: Stephane Orona DO Discharge: Date of : 69 Report #: [id number] 7. We plan to see the patient back in followup visit in 3 months for medication management, earlier if he wishes to discuss interventional treatments. <ELECTRONICALLY SIGNED> By: Stephane Orona DO 10/01/20 1245 1034 1045 Stephane Orona DO /nt
== END ==
LOC: PAIN 06:47
PROVIDERS: ATTEND Anesthesiology Pain Medicine
DX: M50.13 Cervical disc disorder with radiculopathy, cervicothoracic region (principal); M47.22 Other spondylosis with radiculopathy, cervical region; G89.29 Other chronic pain; Z79.899 Other long term (current) drug therapy

== ENCOUNTER → 2020-12-31 | Outpatient (CLI) | payer BC, OTHER ==
[~2020-12-31] VITALS: Ht 177.8 cm; Wt 87.9 kg
[2020-12-31 08:12] VITALS: BP 149/94
--- NOTE | 2020-12-31 08:30 | NUR ---
Pain Clinic Assessment: 1. History of Osteoarthritis: Right Upper Extremity History of Rheumatoid Arthritis: DENIES 2. Height: 5 ft. 10 in. 177.8 cm. Weight: 193.8 lb. oz. 87.907 kg. Patient's BMI: 27.8 3. Vital Signs: BP: 149/94 Pulse: 87 Resp: 16 Temp: 02 Sat: 100 ECG Mon: 4. Pain Intensity: 4 5. Fall Risk: Dizziness: N Needs help standing or walking: N Fallen in the last 3 months: N Fall risk comments: 6. Patient on Blood Thinner: None 7. History of Hypertension: Y 8. Opioid Therapy greater than 6 weeks: Y Opiate Contract Signed: 05/20/16 9. Risk Assessment Tool Provided: O LOW RISK 10. Functional Assessment Tool: 11. Recreational Drug Use: Never Drug Type: Tobacco Use: Former Smoker Tobacco Type: Amount or Packs/day: How Many Years: Alcohol Use: Yes Frequency: Quant:
--- NOTE | 2020-12-31 12:22 | HPC ---
[facility] [address] [place] [address] PAIN MANAGEMENT CONSULTATION Name: DARIUS JAIME Room #: REG CULLEN Bearden#: [id number] Admission: 12/31/20 Attend Phys: Mary De La Garza Discharge: Date of : 69 Report #: [id number] THIS REPORT FOR: cc: Uday Chandler Theodore M. DO Hocker,Mary DANIELS ~ DATE OF SERVICE: 12/31/2020 CHIEF COMPLAINT: Neck pain, right upper extremity pain and paresthesias. HISTORY OF PRESENT ILLNESS: This is a 55-year-old gentleman who returns to the pain clinic today for renewal of his medications. Today, he is reporting a pain score of 4/10. He believes the current regimen of medications has made a significant impact in decreasing his right arm pain. He is taking tramadol ER, tramadol short-acting medicine for breakthrough and Gralise 300 mg at bedtime. He believes the Gralise and the meloxicam have helped in decreasing his pain. He does report having an EMG scheduled later next week that Dr. Chandler his primary care doctor has ordered. The patient does report that his pain is worse with activity, walking long distances and lying down. Though he believes the medication is helpful, he does not experience any significant somnolence or constipation as a result of his medications. ALLERGIES: No known drug allergies. CURRENT LIST OF MEDICATIONS: Tramadol ER 200 mg daily, tramadol 50 mg p.r.n., meloxicam 7.5 mg b.i.d., Cymbalta 60 mg, Benicar, Zetia, Flexeril, and Gralise 300 mg daily. PQRS: 1. He has osteoarthritis affecting his upper extremities. Denies any rheumatoid arthritis. 2. Height is 5 feet 10 inches, weight is 193, BMI is 27. 3. Vital signs 149/94, pulse is 87, respirations 16, and oxygen sat is 100. 4. Pain score is 4/10. 5. Denies dizziness, does not need help walking or standing, has not fallen in the last 3 months. The patient is not on any blood thinners or medicine for hypertension. 6. Opioid therapy is greater than 6 weeks; therefore, an opioid signed contract is on the chart. Risk assessment is low. Functional assessment is 35/70. 7. Recreational drug use, he denies. He is a former smoker and occasionally drinks alcohol. According to the prescription monitoring system, he is filling appropriately. His morphine mEq is less than 40 MME per day. There is a drug screen on the chart that is appropriate as well. [address] [address] PAIN MANAGEMENT CONSULTATION Name: ADDISONDARIUS Room #: REG Rhonda Bearden#: [id number] Admission: 12/31/20 Attend Phys: Mary De La Garza Discharge: Date of : 69 Report #: [id number] PHYSICAL EXAMINATION: GENERAL: This is alert and orientated, well-developed, well-nourished 55-year-old gentleman who appears his stated age, rating his pain score today at 4/10. HEENT: Normocephalic, atraumatic. Pupils round and reactive to light. Speech is fluent. He is wearing a mask. EXTREMITIES: No clubbing, no cyanosis, no edema. MUSCULOSKELETAL: Cervical provocation testing is met with increasing pain on the right with rotation. His lower extremity strength is symmetrical at 5/5 as well as his upper strength as well, tenderness in his cervical spine. ASSESSMENT: 1. Cervical radiculopathy. 2. Displacement of cervical intervertebral disk with radiculopathy. 3. Cervical spondylosis with radiculopathy. 4. Chronic intractable pain. We reviewed the fact that opiate medications are being used to provide analgesia adequate to support activities of daily living, not attempting to achieve a specific pain score on the 0-10 Visual Analog Scale. The current opiate medications are providing sufficient analgesia to allow the patient to participate in activities of daily living. The patient is not exhibiting any aberrant behavior suggestive of drug diversion. The patient is not having any adverse reactions to medications. The patient is not suffering from daytime somnolence or mental acuity changes. The patient is managing opiate-induced constipation with appropriate wxhg-wma-wbpetry agents and dietary considerations. The patient was counseled on concern for caution with operating a motor vehicle while using opiate medications. PLAN: 1. We discussed treatment options with the patient today. The patient does find his tramadol effective as well as taking the meloxicam and Cymbalta. He does not have any GI discomfort from taking the meloxicam. We will continue these medications. Scripts will be sent electronically for 3 months. 2. The patient has been utilizing Gralise 300 mg samples every night and found that very beneficial in controlling his neuropathic pain in his right arm. He does not need prescriptions of this, but will need refills in the future, which we will continue him on. 3. He did schedule for an EMG. His pain has improved with the neuropathic medication. We will look for the results to be faxed to us. The patient is seen today in collaboration with Dr. Stephane Orona. Time spent with the patient today in consultation and physical exam of 12 minutes prior to the appointment today. Time spent reviewing the chart with any pertinent medical documentation including physician notes. Time also spent reviewing the prescription monitoring system, side effects of medication related [facility] [address] [place] [address] PAIN MANAGEMENT CONSULTATION Name: DARIUS JAIME [facility] #: [facility] [id number] Admission: 12/31/20 Attend Phys: Mary De La Garza Discharge: Date of : 69 Report #: [id number] care, sending scripts electronically with collaborating physician, Dr. Orona and documenting of at least 14 minutes. Total time spent 26 minutes. <ELECTRONICALLY SIGNED> By: Mary De La Garza 12/31/20 1222 0908 [id number] Mary De La Garza /nt
== END ==
LOC: PAIN 06:38
PROVIDERS: ATTEND Clinical Nurse Specialist Adult Health
DX: M50.10 Cervical disc disorder with radiculopathy, unspecified cervical region (principal); M79.641 Pain in right hand; R20.2 Paresthesia of skin; M47.22 Other spondylosis with radiculopathy, cervical region; G89.29 Other chronic pain

== ENCOUNTER → 2021-07-01 | Outpatient (CLI) | payer BC, OTHER ==
[~2021-07-01] VITALS: Ht 177.8 cm; Wt 88.7 kg
[2021-07-01 08:03] VITALS: BP 128/85
--- NOTE | 2021-07-01 08:17 | NUR ---
Pain Clinic Assessment: 1. History of Osteoarthritis: Right Upper Extremity History of Rheumatoid Arthritis: DENIES 2. Height: 5 ft. 10 in. 177.8 cm. Weight: 195.6 lb. oz. 88.724 kg. Patient's BMI: 28.1 3. Vital Signs: BP: 128/85 Pulse: 86 Resp: 14 Temp: 02 Sat: 100 ECG Mon: 4. Pain Intensity: 4-5 5. Fall Risk: Dizziness: N Needs help standing or walking: N Fallen in the last 3 months: N Fall risk comments: 6. Patient on Blood Thinner: None 7. History of Hypertension: Y 8. Opioid Therapy greater than 6 weeks: Y Opiate Contract Signed: 05/20/16 9. Risk Assessment Tool Provided: O LOW RISK 10. Functional Assessment Tool: 11. Recreational Drug Use: Never Drug Type: Tobacco Use: Former Smoker Tobacco Type: Amount or Packs/day: How Many Years: Alcohol Use: Yes Frequency: Quant:
--- NOTE | 2021-07-01 11:55 | HPC ---
[facility] [address] [place] [address] PAIN MANAGEMENT CONSULTATION Name: ADDISONDARIUS Damien Room #: REG CULLEN Suleiman#: [id number] Admission: 07/01/21 Attend Phys: Mary De La Garza Discharge: Date of : 69 Report #: [id number] THIS REPORT FOR: cc: Uday Chandler Theodore M. DO Hocker, Amanda CNS ~ cc: Uday Chandler DO, James E. Johnson, DO DATE OF SERVICE: 07/01/2021 CHIEF COMPLAINT: Neck pain and right upper extremity pain and paresthesias. HISTORY OF PRESENT ILLNESS: This is a 55-year-old gentleman who returns to the clinic for renewal of his medications. Today, the patient is reporting that he has been without his medications for greater than a week. He has been stretching his medications per his report since he was unable to make a timely appointment. He reports a pain score of 4-5 today out of 10. Mostly located in his neck and upper trapezius shoulder region. He describes his pain as a stiffness that is occasionally sharp and tender that is worse with activities, walking. He reports usually the medications have been beneficial, but since he has not have these recently, he has been using distraction, heat, and kratom. He reports the kratom helped for a while, but is not planning on taking that long-term. He does not like the effects it had, but it did allow him to get to this appointment today. The patient does report that he did go through some withdrawal last week and that is when he reports starting the kratom. Today, he would like renewal of his tramadol long-acting and short-acting as well as Cymbalta and Meloxicam. ALLERGIES: No known drug allergies. CURRENT LIST OF MEDICATIONS: Meloxicam, tramadol ER 200 mg tablets, tramadol 50 mg p.r.n., Cymbalta, Benicar, Zetia. PQRS: 1. He has osteoarthritic issues in his neck and upper extremities. Denies any rheumatoid arthritis. Height is 5 feet 10 inches, weight is 195, BMI is 28. 2. Vital signs 128/85, pulse is 86, respirations 14, oxygen sat is 100. 3. Pain score is 4-5. Fall risk, denies dizziness, does not need help walking or standing, has not fallen in the last 3 months. 4. The patient is not on any blood thinners, does take medicine for hypertension. Opioid therapy is greater than 6 weeks; therefore, an opioid signed contract is on the chart. 5. Risk assessment is low. Functional assessment is 35/70. 6. Recreational drug use, he denies. He is a former smoker and occasionally drinks alcohol. According to the prescription monitoring system, he last filled his medications [address] [address] PAIN MANAGEMENT CONSULTATION Name: DARIUS JAIME Damien Room #: REG [facility].#: [id number] Admission: 07/01/21 Attend Phys: Mary De La Garza Discharge: Date of : 69 Report #: [id number] in February. Morphine milliequivalent is less than 50 MME. PHYSICAL EXAMINATION: GENERAL: Alert and orientated. Well-developed, well-nourished, well-hydrated 55-year-old gentleman who appears his stated age, rating his pain score today at 4-5. HEENT: Normocephalic, atraumatic. Pupils equal, round and reactive to light. His speech is fluent. He is wearing a mask for COVID requirements. EXTREMITIES: No clubbing, no cyanosis, no edema. MUSCULOSKELETAL: Cervical provocation testing is met with increasing pain with rotation and lateral flexion to the right. Muscle bulk and tone appear symmetrical in his upper extremities with strength at 5/5. He does have tenderness in the rhomboid and trapezius muscles on the right. ASSESSMENT: 1. Cervical radiculopathy. 2. Displacement of cervical intervertebral disk with radiculopathy. 3. Cervical spondylosis with radiculopathy. 4. Chronic intractable pain. 5. Complex medical management utilizing scheduled opioid medications. PLAN: We discussed treatment options with the patient today, explaining we do not encourage him to wean down slowly, instead we encourage him to make a timely appointments to avoid withdrawal and using medications such as kratom. The patient verbalized understanding. He is not planning on doing this again. He said he did not like the effects of kratom and his pain was significantly increased while off his medications. Today, I did consider decreasing his long-acting since he has been without, but he informed me he has been taking his tramadol 50 mg up to 4 times a day and would like to return to a previous dose. He states usually he would take the tramadol on a sparing basis, especially when he is at work. We will have Dr. Stephane Orona send his tramadol ER 200 mg tablets #30 as well as tramadol 50 mg #120. I will continue his adjunct medications, which he did continue to take of Cymbalta 60 mg and meloxicam 7.5 mg b.i.d., #60. These will be sent for 6 months. Time spent with the patient in consultation and physical exam, reviewing recent studies and clinical notes and correlation of physical findings and medical documentation to determine possible treatment options, 12 minutes. Time spent in preparation for appointment reviewing prescription monitoring system reports, reviewing previous records and proposed treatment options and reviewing current medications, 5 minutes. Time spent preparing and sending electronic [facility] [address] [place] [address] PAIN MANAGEMENT CONSULTATION Name: DARIUS JAIME Room #: REG [facility] Suleiman#: [id number] Admission: 07/01/21 Attend Phys: Mary De La Garza Discharge: Date of : 69 Report #: [id number] prescriptions with collaborating physician, Dr. Stephane Orona, documentation of visit and plan of treatment, 5 minutes. Total time spent 22 minutes. <ELECTRONICALLY SIGNED> By: Mary De La Garza 07/01/21 1155 [id number] Mary De La Garza /nt
== END ==
LOC: PAIN 07:40
PROVIDERS: ATTEND Clinical Nurse Specialist Adult Health
DX: M47.22 Other spondylosis with radiculopathy, cervical region (principal); M50.10 Cervical disc disorder with radiculopathy, unspecified cervical region; G89.29 Other chronic pain; M79.601 Pain in right arm

== ENCOUNTER → 2021-11-05 | Outpatient (CLI) | payer BC, OTHER ==
[~2021-11-05] VITALS: Ht 152.4 cm; Wt 86.6 kg
[2021-11-05 08:13] VITALS: BP 151/95
--- NOTE | 2021-11-05 08:20 | NUR ---
Pain Clinic Assessment: 1. History of Osteoarthritis: Right Upper Extremity History of Rheumatoid Arthritis: DENIES 2. Height: 5 ft. 10 in. 152.4 cm. Weight: 191.0 lb. oz. 86.637 kg. Patient's BMI: 37.3 3. Vital Signs: BP: 151/95 Pulse: 86 Resp: 14 Temp: 02 Sat: 100 ECG Mon: 4. Pain Intensity: 3 5. Fall Risk: Dizziness: N Needs help standing or walking: N Fallen in the last 3 months: N Fall risk comments: 6. Patient on Blood Thinner: None 7. History of Hypertension: Y 8. Opioid Therapy greater than 6 weeks: Y Opiate Contract Signed: 05/20/16 9. Risk Assessment Tool Provided: O LOW RISK 10. Functional Assessment Tool: 11. Recreational Drug Use: Never Drug Type: Tobacco Use: Former Smoker Tobacco Type: Amount or Packs/day: How Many Years: Alcohol Use: Yes Frequency: Quant:
--- NOTE | 2021-11-06 14:56 | HPC ---
[facility] [address] [place] [address] PAIN MANAGEMENT CONSULTATION Name: DARIUS JAIME Damien Room #: REG CULLEN Suleiman#: [id number] Admission: 11/05/21 Attend Phys: Mary De La Garza Discharge: Date of : 69 Report #: [id number] THIS REPORT FOR: cc: Uday Chandler Theodore M. DO Hocker, Amanda CNS ~ cc: Uday Chandler DO, James E. Johnson, DO DATE OF SERVICE: 11/05/2021 CHIEF COMPLAINT: Neck pain, right upper extremity pain and paresthesias. HISTORY OF PRESENT ILLNESS: This is a very pleasant 56-year-old gentleman who returns to the pain clinic for his ongoing neck pain that radiates into his right shoulder and into his right thoracic region. Today, he is reporting a pain score of 3/10. He feels the tramadol extended release and tramadol short-acting medication is beneficial in helping alleviate a significant portion of his pain and allow him to be active. Too much activity unfortunately does cause increase in pain as well as walking for long distances. He finds resting, ice and the medications beneficial with very minimal issues with constipation or no daytime somnolence. He does continue with meloxicam and Cymbalta on a daily basis as well and denies any GI issues with that medication. The patient reports that occasionally his pain has been radiating to his legs at times. The patient reports that he has only been getting 7-day supply of his medication and is wondering if we had written that medication that way for his short-acting medications. I discussed this with him regarding his prescription monitoring report and the fact that he had a new pharmacy. Typically, they gave 1 day 1-week supply for a new patient or who they think is opioid naive. The patient did have a lapse in his medications, so therefore they may have thought he was opioid naive patient, but that should have been a one-time fill, he needs to address that with them at his next fill at the pharmacy. ALLERGIES: No known drug allergies. CURRENT LIST OF MEDICATIONS: Tramadol ER 200 mg daily, tramadol 50 mg p.r.n., Cymbalta 60 mg, meloxicam 7.5, Benicar, Zetia and Flexeril. PQRS: 1. He has upper extremity and neck osteoarthritis. Denies any rheumatoid arthritis. Height is 5 feet 10 inches, weight is 191, BMI is 37. 2. Vital signs 151/95, pulse is 86, respirations 14, oxygen sat is 100%. 3. Pain score is 3/10. 4. Denies dizziness, does not need up walking or standing, has not fallen in the last 3 months. 5. The patient is not on any blood thinners, but does have a history of hypertension. [address] [address] PAIN MANAGEMENT CONSULTATION Name: ADDISONDARIUS Room #: REG [facility].#: [id number] Admission: 11/05/21 Attend Phys: Mary De La Garza Discharge: Date of : 69 Report #: [id number] 6. Opioid therapy is greater than 6 weeks; therefore, an opioid signed contract is on the chart. 7. Risk assessment is low. Functional assessment is 35/70. 8. Recreational drug use, he denies. He is not a smoker and does not drink alcohol. According to the prescription monitoring system, the patient is filling appropriately, though his pharmacy is only allowing the 7-day supply of his short-acting medication. His morphine mEq is 40 MME/day, taking his full allotted amount. There is a urine drug screen on the chart and we will collect another one at his next appointment. We reviewed the fact that opiate medications are being used to provide analgesia adequate to support activities of daily living, not attempting to achieve a specific pain score on the 0-10 Visual Analog Scale. The current opiate medications are providing sufficient analgesia to allow the patient to participate in activities of daily living. The patient is not exhibiting any aberrant behavior suggestive of drug diversion. The patient is not having any adverse reactions to medications. The patient is not suffering from daytime somnolence or mental acuity changes. The patient is managing opiate-induced constipation with appropriate oaqy-lid-ewbymhe agents and dietary considerations. The patient was counseled on concern for caution with operating a motor vehicle while using opiate medications. PHYSICAL EXAMINATION: GENERAL: This is alert and oriented, well-developed, well-nourished 56-year-old gentleman who is rating his pain score today at 3/10. HEENT: Normocephalic, atraumatic. Extraocular eye muscles are intact. His speech is fluent. He is wearing a mask for COVID precautions. EXTREMITIES: No clubbing, no cyanosis, no edema. MUSCULOSKELETAL: Cervical provocation testing is met with increasing pain in the right lateral neck as well as radiation into his right shoulder. Pain in his right paraspinal musculature of the thoracic spine as well. Upper and lower extremity strength is symmetrical at 5/5. Tenderness in the trapezius and rhomboid muscles on the right as well. ASSESSMENT: 1. Cervical radiculopathy. 2. Displacement of cervical intervertebral disk with radiculopathy. 3. Cervical spondylosis with radiculopathy. 4. Chronic intractable pain. 5. Myofascial pain. 6. Complex medical management utilizing scheduled opioid medications. PLAN: 1. We discussed treatment options with the patient today. The patient feels [facility] [address] [place] [address] PAIN MANAGEMENT CONSULTATION Name: DARIUS JAIME Damien Room #: REG [facility].#: [id number] Admission: 11/05/21 Attend Phys: Mary De La Garza Discharge: Date of : 69 Report #: [id number] the medication is beneficial in alleviating a significant portion of his pain and would like to continue. I did discuss with him about the short prescriptions his pharmacy has been filling. We will have Dr. Stephane Orona for the note on the next prescription for them to fill the entire month. He is not opioid naive. He is chronic pain patient taking these on a daily basis. He also has a prior authorization approval through December for this medication, so he should have no difficulty filling; therefore, 120 mg tablets of his short-acting tramadol. Scripts will be sent electronically by Dr. Orona for tramadol ER 200 mg, 30 with 2 refills and tramadol 50 mg, #120 with 2 refills. 2. The patient does not need his Cymbalta or meloxicam fill today. He has plenty of refills since his last visit. 3. We will collect a random drug screen on this patient at his next visit. Time spent with the patient in consultation, reviewing pertinent imaging, reviewing recent studies and clinical notes and physician reports, physical examination and correlation of findings and medical documentation to determine possible treatment option 13 minutes. Time spent with preparation for appointment reviewing prescription monitoring system reports, reviewing previous records and proposed treatment options, reviewing current medications 5 minutes. Time spent preparing and sending electronic prescriptions with Dr. Stephane Orona and documentation of visit and plan of treatment 5 minutes. Total time spent 23 minutes. <ELECTRONICALLY SIGNED> By: Mary De La Garza 11/06/21 [id number] Mary De La Garza /dennys
== END ==
LOC: PAIN 06:59
PROVIDERS: ATTEND Clinical Nurse Specialist Adult Health
DX: M47.22 Other spondylosis with radiculopathy, cervical region (principal); M50.10 Cervical disc disorder with radiculopathy, unspecified cervical region; M79.621 Pain in right upper arm; M79.18 Myalgia, other site; G89.29 Other chronic pain; Z79.899 Other long term (current) drug therapy